=== PATIENT | female | born 1940 ===

== ENCOUNTER 2017-04-28 12:39 | Emergency (ER) | payer MEDICARE, OTHER ==
[2017-04-28 12:40] VITALS: PULSE 58; BMI 27.3
[2017-04-28 13:14] VITALS: BP 155/88; PULSE 78; RESP 16; TEMP 98.4; O2SAT 97
--- NOTE | 2017-04-28 14:40 | ED PDOC ---
HPI: CCC, URI, Sore Throat Time Seen by Provider: 04/28/17 14:28 Chief Complaint (Nursing): Headache Chief Complaint (Provider): Cough History Per: Patient, Family (Daughter) History/Exam Limitations: no limitations Have you had recent travel within the past 21 days to any of the following countries: [place], [place], [place] or [place]?: No Additional History Per: Family (Daughter) Additional Complaint(s): Pt reports cough productive of yellow sputum X 15 days, subjective fever, bilateral rib pain and LINO when coughing and bodyaches. Also c/o L sided neck pain X 3 days, worse with horizontal head movement. Denies paresthesias, weakness, CP, SOB. Past Medical History Vital Signs: Last Vital Signs Temp 98.4 F 04/28/17 13:12 Pulse 78 04/28/17 13:12 Resp 16 04/28/17 13:12 BP 155/88 H 04/28/17 13:12 Pulse Ox 97 04/28/17 17:25 - Medical History PMH: Anemia, Anxiety, Arthritis, Asthma, Atrial Fibrillation, CAD, Cardia Arrhythmia (a fib), Diverticulitis, Gastritis, Gall Bladder Disease, HTN, Hypercholesterolemia, Mitral Valve Prolapse, Osteoporosis, Peripheral Edema Denies: Hypothyroidism, Rheumatoid Arthritis - Surgical History Surgical History: Appendectomy, Cholecystectomy, Endoscopy, Hernia Repair Other surgeries: Valve replacement - Family History Family History: States: Unknown Family Hx - Social History Current smoker - smoking cessation education provided: No Alcohol: None - Immunization History Hx Influenza Vaccination: Yes - Home Medications Home Medications: Ambulatory Orders Medication Instructions Recorded Aspirin [Aspirin Chewable] 81 mg PO DAILY chew 05/19/16 Donepezil [Aricept] 5 mg PO HS tab 05/19/16 Furosemide [Lasix] 40 mg PO DAILY tab 05/19/16 Lisinopril [Zestril] 20 mg PO DAILY tab 05/19/16 Losartan [Cozaar] 100 mg PO DAILY tab 05/19/16 Montelukast [Singulair] 10 mg PO HS tab 05/19/16 Pantoprazole [Protonix EC Tab] 40 mg PO DAILY ect 05/19/16 Rosuvastatin Calcium [Crestor] 10 mg PO HS tab 05/19/16 amLODIPine [Norvasc] 10 mg PO DAILY tab 03/14/17 hydroCHLOROthiazide [Hydrodiuril] 25 mg PO DAILY tab 05/19/16 Warfarin [Coumadin] 5 mg PO DAILY 11/03/16 Moxifloxacin [Avelox] 400 mg PO DAILY #4 tab 04/28/17 - Allergies Allergies/Adverse Reactions: Allergies Allergy/AdvReac Type Severity Reaction Status Date / Time iodine Allergy SWELLING Verified 05/14/16 14:29 iv contrast Allergy SWELLING Uncoded 05/14/16 14:29 Curb-65 Severity Score - CURB-65 Severity Score Confusion: No Bun >19mg/dl (>7mmol/L): No Respiratory Rate greater than/equal to 30: No Systolic BP <90 or Diastolic BP less than/equal 60mmHg: No Age >64: Yes Curb-65 Score: 1 Percentage 30-day mortality: 2.7% Review of Systems Constitutional: Positive for: Fever (Subjective). Negative for: Chills, Sweats , Weakness, Malaise Eyes: Negative for: Vision Change Cardiovascular: Negative for: Chest Pain, Palpitations Respiratory: Positive for: Cough, Sputum. Negative for: Shortness of Breath, SOB with Exertion, Wheezing Gastrointestinal: Negative for: Nausea, Vomiting, Diarrhea Genitourinary Female: Negative for: Dysuria, Hematuria Musculoskeletal: Positive for: Neck Pain, Shoulder Pain. Negative for: Back Pain, Leg Pain Skin: Negative for: Rash, Lesions Neurological: Positive for: Headache. Negative for: Weakness, Numbness, Incoordination, Confusion, Seizures, Altered Mental Status, Dizziness Physical Exam - Reviewed Nursing Documentation Reviewed: Yes Vital Signs Reviewed: Yes - Physical Exam Appears: Positive for: Well, No Acute Distress (Speaking full sentences) Head Exam: Positive for: ATRAUMATIC, NORMAL INSPECTION Skin: Positive for: Normal Color, Warm, Dry Eye Exam: Positive for: Normal appearance, EOMI, PERRL Neck: Positive for: Supple, Trachea Midline, Pain On Movement Of Neck. Negative for: Normal (TTP L lateral neck along SCM), Painless ROM Cardiovascular/Chest: Positive for: Irregularly Irregular. Negative for: Bradycardia, Tachycardia Respiratory: Positive for: Normal Breath Sounds. Negative for: Rales, Rhonchi, Wheezing Gastrointestinal/Abdominal: Positive for: Normal Exam, Bowel Sounds, Soft Back: Positive for: Normal Inspection. Negative for: L CVA Tenderness, R CVA Tenderness Extremity: Positive for: Normal ROM. Negative for: Calf Tenderness, Swelling Neurologic/Psych: Positive for: Alert, interactive web developer II-XII, Oriented. Negative for: Motor/Sensory Deficits, Facial Droop - Laboratory Results Result Diagrams: 04/28/17 15:35 04/28/17 15:35 - ECG Interpretation Of ECG: A fib @ 85, RBBB (unchanged from 05/14/16). O2 Sat by Pulse Oximetry: 97 Pulse Ox Interpretation: Normal Medical Decision Making Medical Decision Makin yo female with productive cough, LINO and L neck pain. - labs - EKG - CXR - CT head Accession No. : [id number] Patient Name / ID : SHARMIN Barry / [id number] Exam Date : 04/28/2017 14:52:02 ( Approved ) Study Comment : Sex / Age : F / 76Y Creator : Javier Gomez MD Dictator : Javier Gomez MD Irrigator Valve Pipe : Interpersonal Communications Professor : Javier Gomez MD Approver2 : Report Date : 04/28/2017 15:29:03 My Comment : HISTORY: Cough COMPARISON: Frontal chest radiograph 03/06/2015. TECHNIQUE: Chest PA and lateral FINDINGS: LUNGS: Minimal linear atelectasis seen at the inferior right lung zone laterally versus interval fibrosis. No acute infiltrate bilaterally. Minimal chronic fibrosis inferior left lung zone laterally and at the medial base. PLEURA: No significant pleural effusion identified. No pneumothorax apparent. CARDIOVASCULAR: Gross cardiomegaly again evident. No pulmonary vascular congestion appreciable. Sternotomy wires again noted. OSSEOUS STRUCTURES: No significant abnormalities. VISUALIZED UPPER ABDOMEN: Normal. OTHER FINDINGS: None. IMPRESSION: Stable gross cardiomegaly. No pulmonary vascular derangement, pleural effusion or pneumothorax identified. Interval trace interval linear atelectasis or fibrosis inferior right lung zone with limited fibrosis remaining at the left lung. Accession No. : [id number] Patient Name / ID : SHARMIN DOMINGUEZ / [id number] Exam Date : 04/28/2017 16:14:07 ( Approved ) Study Comment : Sex / Age : F / 76Y Creator : Javier Gomez MD Dictator : Javier Gomez MD Irrigator Valve Pipe : Interpersonal Communications Professor : Javier Gomez MD Approver2 : Report Date : 04/28/2017 17:00:24 My Comment : PROCEDURE: CT HEAD WITHOUT CONTRAST. HISTORY: L sided LINO COMPARISON: Unenhanced head CT 03/07/2015. TECHNIQUE: Axial computed tomography images were obtained t hrough the head/brain without intravenous contrast. Radiation dose: Total exam DLP = 696.05 mGy-cm. This CT exam was performed using one or more of the following dose reduction techniques: Automated exposure control, adjustment of the mA and/or kV according to patient size, and/or use of iterative reconstruction technique. FINDINGS: HEMORRHAGE: No intracranial hemorrhage. BRAIN: Limited diffuse cerebral atrophy is reiterated as well as trace chronic microangiopathy. Chronic lacune is identified the left internal capsule. Posterior fossa contents appear stable in the interval. There is no mass effect or suspicious extra-axial fluid collection appreciated. Midline brain anatomy appears stable and unremarkable grossly. VENTRICLES: Unremarkable. No hydrocephalus. CALVARIUM: Unremarkable. PARANASAL SINUSES: Left maxillary sinusitis is appreciated. MASTOID AIR CELLS: Unremarkable as visualized. No inflammatory changes. OTHER FINDINGS: None. IMPRESSION: No definitive acute or subacute brain infarction is appreciable by standard CT criteria. No intracranial hemorrhage. Follow-up CT or MRI are available as clinically warranted. Stable limited age-related neuro degenerative change identified compared to CT 03/07/2015. 18:25 Dr. Souza paged. Pt unwilling to wait for call back. Will give patient copy of labs and discussed with INR 3.3. States she will follow-up with Dr. Souza. Disposition - Clinical Impression Clinical Impression: Bronchitis - Patient ED Disposition Is Patient to be Admitted: No - Disposition Referrals: Dallin Souza Jr., MD [Family Provider] - [facility] [Outside] Disposition: Routine/Home Disposition Time: 18:31 Condition: STABLE Prescriptions: Moxifloxacin [Avelox] 400 mg PO DAILY #4 tab Instructions: Acute Bronchitis Forms: [facility] (Swedish) Print Language: ALGERIAN
--- NOTE | 2017-04-28 15:30 | RAD ---
HISTORY: Cough COMPARISON: Frontal chest radiograph 03/06/2015. TECHNIQUE: Chest PA and lateral FINDINGS: LUNGS: Minimal linear atelectasis seen at the inferior right lung zone laterally versus interval fibrosis. No acute infiltrate bilaterally. Minimal chronic fibrosis inferior left lung zone laterally and at the medial base. PLEURA: No significant pleural effusion identified. No pneumothorax apparent. CARDIOVASCULAR: Gross cardiomegaly again evident. No pulmonary vascular congestion appreciable. Sternotomy wires again noted. OSSEOUS STRUCTURES: No significant abnormalities. VISUALIZED UPPER ABDOMEN: Normal. OTHER FINDINGS: None. IMPRESSION: Stable gross cardiomegaly. No pulmonary vascular derangement, pleural effusion or pneumothorax identified. Interval trace interval linear atelectasis or fibrosis inferior right lung zone with limited fibrosis remaining at the left lung.
[2017-04-28 15:49] LABS: BASO % 0.4 % (0.0-2.0); EOS # 0.2 K/uL (0.0-0.7); EOS % 1.9 % (0.0-4.0); HEMOGLOBIN 13.4 g/dL (12.0-16.0); LYMPH # 1.3 K/uL (1.0-4.3); LYMPH % 12.6 % (20.0-40.0); MEAN CELL VOLUME 84.4 fl (81.0-99.0); MEAN CORPUSCULAR HEMOGLOBIN 28.7 pg (27.0-31.0); MEAN PLATELET VOLUME 9.2 fl (7.2-11.7); MONO # 1.2 K/uL (0.0-0.8); MONO % 11.1 % (0.0-10.0); NEUT # 7.7 K/uL (1.8-7.0); NRBC % 0.2 % (0.0-0.0); RBC 4.68 Mil/uL (3.80-5.20); RED CELL DISTRIBUTION WIDTH 14.8 % (11.5-14.5); WHITE BLOOD COUNT 10.5 K/uL (4.8-10.8)
[2017-04-28 15:57] LABS: GFR AFRICAN-AMERICAN > 60; GFR NON-AFRICAN AMERICAN > 60
[2017-04-28 16:05] LABS: B-TYPE NATRIURETIC PEPTIDE 272 pg/ml (0-900)
[2017-04-28 16:11] LABS: ALB/GLOB RATIO 1.2 (1.0-2.1); ALBUMIN 4.6 g/dL (3.5-5.0); ALT/SGPT 35 U/L (9-52); AST/SGOT 40 U/L (14-36); BLOOD UREA NITROGEN 11 mg/dl (7-17)
[2017-04-28 16:15] LABS: SQUAMOUS EPITHIAL 3 /hpf (0-5); URINE BILIRUBIN NEGATIVE (NEGATIVE); URINE BLOOD NEGATIVE (NEGATIVE); URINE CLARITY SLIGHTY-CLOUDY (Clear); URINE COLOR YELLOW (YELLOW); URINE GLUCOSE (UA) NEG (Normal); URINE LEUKOCYTE ESTERASE NEG Leu/uL (Negative); URINE NITRATE NEGATIVE (NEGATIVE); URINE PROTEIN 30 mg/dL (NEGATIVE); URINE UROBILINOGEN 0.2-1.0 mg/dL (0.2-1.0)
[2017-04-28 16:45] LABS: INR 3.3 (0.9-1.2)
[2017-04-28 16:46] LABS: PROTHROMBIN TIME 37.1 Seconds (9.8-13.1)
[2017-04-28 16:47] LABS: PARTIAL THROMBOPLASTIN TIME 46.9 Seconds (25.6-37.1)
--- NOTE | 2017-04-28 17:02 | CT ---
PROCEDURE: CT HEAD WITHOUT CONTRAST. HISTORY: L sided LINO COMPARISON: Unenhanced head CT 03/07/2015. TECHNIQUE: Axial computed tomography images were obtained through the head/brain without intravenous contrast. Radiation dose: Total exam DLP = 696.05 mGy-cm. This CT exam was performed using one or more of the following dose reduction techniques: Automated exposure control, adjustment of the mA and/or kV according to patient size, and/or use of iterative reconstruction technique. FINDINGS: HEMORRHAGE: No intracranial hemorrhage. BRAIN: Limited diffuse cerebral atrophy is reiterated as well as trace chronic microangiopathy. Chronic lacune is identified the left internal capsule. Posterior fossa contents appear stable in the interval. There is no mass effect or suspicious extra-axial fluid collection appreciated. Midline brain anatomy appears stable and unremarkable grossly. VENTRICLES: Unremarkable. No hydrocephalus. CALVARIUM: Unremarkable. PARANASAL SINUSES: Left maxillary sinusitis is appreciated. MASTOID AIR CELLS: Unremarkable as visualized. No inflammatory changes. OTHER FINDINGS: None. IMPRESSION: No definitive acute or subacute brain infarction is appreciable by standard CT criteria. No intracranial hemorrhage. Follow-up CT or MRI are available as clinically warranted. Stable limited age-related neuro degenerative change identified compared to CT 03/07/2015.
--- NOTE | 2017-04-28 21:00 | CARD ---
APPROVED REPORT EKG Measurement Heart [id number] <Conclusion> Atrial fibrillation Right bundle branch block Abnormal ECG
== END 2017-04-28 18:54 | disposition home or self-care (01) ==
LOC: H.ER 12:39
DX: J40 Bronchitis, not specified as acute or chronic (principal); E78.00 Pure hypercholesterolemia, unspecified; I10 Essential (primary) hypertension; I25.10 Atherosclerotic heart disease of native coronary artery without angina pectoris; Z79.01 Long term (current) use of anticoagulants; Z95.2 Presence of prosthetic heart valve; I48.91 Unspecified atrial fibrillation; I34.1 Nonrheumatic mitral (valve) prolapse

== ENCOUNTER 2018-07-25 19:35 | Inpatient (IN) | payer MEDICARE, OTHER ==
[2018-07-25 19:35] VITALS: PULSE 58; BMI 27.3
[2018-07-25 20:36] LABS: ALB/GLOB RATIO 1.4 (1.0-2.1); ALBUMIN 4.4 g/dL (3.5-5.0); ALT/SGPT 78 U/L (9-52); AST/SGOT 73 U/L (14-36); BLOOD UREA NITROGEN 24 mg/dl (7-17); GFR NON-AFRICAN AMERICAN > 60
[2018-07-25 20:41] LABS: BASO % 0.4 % (0.0-2.0); EOS # 0.3 K/uL (0.0-0.7); EOS % 3.9 % (0.0-4.0); HEMOGLOBIN 12.9 g/dL (12.0-16.0); LYMPH # 1.4 K/uL (1.0-4.3); MEAN CELL VOLUME 86.2 fl (81.0-99.0); MEAN CORPUSCULAR HEMOGLOBIN 28.8 pg (27.0-31.0); MEAN CORPUSCULAR HGB CONC 33.4 g/dL (33.0-37.0); MEAN PLATELET VOLUME 10.1 fl (7.2-11.7); MONO # 0.9 K/uL (0.0-0.8); MONO % 12.7 % (0.0-10.0); NEUT # 4.3 K/uL (1.8-7.0); RBC 4.48 Mil/uL (3.80-5.20); RED CELL DISTRIBUTION WIDTH 14.9 % (11.5-14.5); WHITE BLOOD COUNT 6.9 K/uL (4.8-10.8)
--- NOTE | 2018-07-25 20:45 | ED PDOC ---
HPI: General Adult Time Seen by Provider: 07/25/18 19:54 Chief Complaint (Nursing): Chest Pain Chief Complaint (Provider): Shortness of breath History Per: Patient, Movie Writer ([email or web address] [id number]) History/Exam Limitations: no limitations Onset/Duration Of Symptoms: Days Additional Complaint(s): 77yo female, with history of hypertensio, high cholesterol, AFib, asthma, comes to ER reportingf shortness of breath. She reports her symptoms might be related to asthma; also states she has had a productive cough x 1 week with fever yesterday. She denies any associated vomiting or diarrhea. She reports mild lower extremity swelling bilaterally, which has been worsening over the past week. Past Medical History Reviewed: Historical Data, Nursing Documentation, Vital Signs Vital Signs: Last Vital Signs Temp 98.5 F 07/25/18 19:43 Pulse 70 07/25/18 19:43 Resp 20 07/25/18 19:43 BP 130/87 07/25/18 19:43 Pulse Ox 94 L 07/25/18 19:43 Primary Care Provider: Dallin Souza Jr. - Medical History PMH: Anemia, Anxiety, Arthritis, Asthma, Atrial Fibrillation, CAD, Cardia Arrhythmia (a fib), Diverticulitis, Gastritis, Gall Bladder Disease, HTN, Hypercholesterolemia, Mitral Valve Prolapse, Osteoporosis, Peripheral Edema Denies: Hypothyroidism, Rheumatoid Arthritis - Surgical History Surgical History: Appendectomy, Cholecystectomy, Endoscopy, Hernia Repair - Family History Family History: States: Unknown Family Hx - Social History Current smoker - smoking cessation education provided: No Alcohol: None Drugs: Denies - Immunization History Hx Influenza Vaccination: Yes - Home Medications Home Medications: Ambulatory Orders Medication Instructions Recorded Amlodipine Besylate 15 mg PO DAILY 02/11/18 Atorvastatin Calcium 40 mg PO DAILY 02/11/18 Metoprolol Tartrate 100 mg PO BID 02/11/18 Montelukast Sodium 10 mg PO HS 02/11/18 Warfarin Sodium 8 mg PO DAILY 02/11/18 Donepezil HCl [Aricept] 5 mg PO HS 07/25/18 Furosemide [Lasix] 40 mg PO BID 07/25/18 - Allergies Allergies/Adverse Reactions: Allergies Allergy/AdvReac Type Severity Reaction Status Date / Time iodine Allergy SWELLING Verified 02/11/18 15:09 iv contrast Allergy SWELLING Uncoded 05/14/16 14:29 Review of Systems ROS Statement: Except As Marked, All Systems Reviewed And Found Negative Constitutional: Positive for: Fever Respiratory: Positive for: Cough, Shortness of Breath, Sputum Gastrointestinal: Negative for: Vomiting, Diarrhea Physical Exam - Reviewed Nursing Documentation Reviewed: Yes Vital Signs Reviewed: Yes - Physical Exam Appears: Positive for: Non-toxic Head Exam: Positive for: ATRAUMATIC, NORMAL INSPECTION, NORMOCEPHALIC Skin: Positive for: Normal Color Eye Exam: Positive for: Normal appearance ENT: Positive for: Normal ENT Inspection Neck: Positive for: Supple Cardiovascular/Chest: Positive for: Regular Rate, Rhythm. Negative for: Tachycardia Respiratory: Positive for: Wheezing (expiratory wheeze; good air entry), Other (slight tachypnea). Negative for: Decreased Breath Sounds, Accessory Muscle Use Gastrointestinal/Abdominal: Positive for: Soft Back: Positive for: Normal Inspection Extremity: Positive for: Normal ROM, Pedal Edema (1+ pitting edema) Neurological/Psych: Positive for: Awake, Alert, Normal Tone - Laboratory Results Result Diagrams: 07/25/18 20:21 07/25/18 20:21 Lab Results: Total Bilirubin 0.6 mg/dl (0.2-1.3) 07/25/18 20:21 AST 73 U/L (14-36) H D 07/25/18 20:21 ALT 78 U/L (9-52) H D 07/25/18 20:21 Alkaline Phosphatase 60 U/L (38-126) 07/25/18 20:21 Total Protein 7.6 G/DL (6.3-8.2) 07/25/18 20:21 Albumin 4.4 g/dL (3.5-5.0) 07/25/18 20:21 Globulin 3.2 gm/dL (2.2-3.9) 07/25/18 20:21 Albumin/Globulin Ratio 1.4 (1.0-2.1) 07/25/18 20:21 - ECG O2 Sat by Pulse Oximetry: 94 (RA) Medical Decision Making Medical Decision Making: Impression: Asthma r/o pneumonia, CHF, spesis, influenza Plan: -- Labs -- EKG -- CXR -- DUoneb 3ml INH -- Solumedrol 125mg IVP 2224 the pts cxr appears negative, labs reviewed. probnp and trop are negative so unlikely chf. more likely is asthma exac, and steroids and nebs ordered to treat that. Case discussed with Dr. Cotto, medical service transplant nurse practitioner, who accepts patient for admission Plan for admission discussed with patient, and is agreeable. Time: 33 CXR RESULTS Clinical history: Cough. Comparison: 04/28/2017. Findings: Frontal and lateral views of the chest were obtained. The mediastinum is within normal limits. The heart is enlarged. The lungs are clear. No pleural effusion or pneumothorax is seen. The osseous structures and soft tissues are unremarkable. Impression: No acute disease. Stable cardiomegaly. Electronically signed on July 26, 2018 12:34:52 AM EDT by: Elvira Vega M.D., Certified by CHELLE HUA, Neuroradiology Scribe Attestation: Documented by Jessica Aguilar acting as a scribe for Leyla Hutchins MD. Provider Scribe Attestation: All medical record entries made by the Scribe were at my direction and personally dictated by me. I have reviewed the chart and agree that the record accurately reflects my personal performance of the history, physical exam, medical decision making, and the department course for this patient. I have also personally directed, reviewed, and agree with the discharge instructions and disposition. Disposition - Clinical Impression Clinical Impression: Chest pain - Patient ED Disposition Is Patient to be Admitted: Yes Counseled Patient/Family Regarding: Studies Performed, Diagnosis - Disposition Disposition Time: 22:35 Condition: STABLE
[2018-07-25] MEDS ORDERED: Albuterol-Ipratrop 3 mg / 0.5 (3 ml) UD INH STA ×2 (20:46→22:25)
[2018-07-25 20:48] LABS: B-TYPE NATRIURETIC PEPTIDE 359 pg/ml (0-900)
[2018-07-25] MEDS ORDERED: Albuterol-Ipratrop 3 mg / 0.5 (3 ml) UD ONE ×2 (20:54→22:33)
[2018-07-26] MEDS: MethylPREDNISolone 40 mg Vial IVP SCH ×3 (01:00→16:34)
[2018-07-26] MEDS: Albuterol-Ipratrop 3 mg / 0.5 (3 ml) UD INH SCH ×4 (07:21→19:13)
[2018-07-26] MEDS ORDERED: MethylPREDNISolone 40 mg Vial IVP SCH (09:00)
[2018-07-26] MEDS ORDERED: methylPREDNISolone 40 MG in Sodium Chloride 0.9% 50 ML IVP SCH (09:00)
[2018-07-26] MEDS ORDERED: methylPREDNISolone 40 MG in Sodium Chloride 0.9% 50 ML IVPB SCH (09:00)
[2018-07-26 09:54] LABS: BASO % 0.4 % (0.0-2.0); EOS % 0.1 % (0.0-4.0); HEMOGLOBIN 12.5 g/dL (12.0-16.0); LYMPH # 0.4 K/uL (1.0-4.3); LYMPH % 6.1 % (20.0-40.0); MEAN CELL VOLUME 86.4 fl (81.0-99.0); MEAN CORPUSCULAR HEMOGLOBIN 28.6 pg (27.0-31.0); MEAN CORPUSCULAR HGB CONC 33.1 g/dL (33.0-37.0); MEAN PLATELET VOLUME 10.2 fl (7.2-11.7); MONO # 0.1 K/uL (0.0-0.8); MONO % 1.4 % (0.0-10.0); NEUT # 6.3 K/uL (1.8-7.0); PLATELET COUNT 167 K/uL (130-400); RBC 4.37 Mil/uL (3.80-5.20); RED CELL DISTRIBUTION WIDTH 14.9 % (11.5-14.5); WHITE BLOOD COUNT 6.9 K/uL (4.8-10.8)
[2018-07-26 10:08] LABS: INR 1.4; PROTHROMBIN TIME 15.9 Seconds (9.8-13.1)
[2018-07-26 10:11] LABS: PARTIAL THROMBOPLASTIN TIME 31.7 Seconds (25.6-37.1)
[2018-07-26 10:12] LABS: LDL CHOLESTEROL 123 mg/dL (0-129)
[2018-07-26 10:13] LABS: ALB/GLOB RATIO 1.5 (1.0-2.1); ALBUMIN 4.3 g/dL (3.5-5.0); ALT/SGPT 76 U/L (9-52); AST/SGOT 60 U/L (14-36); BLOOD UREA NITROGEN 23 mg/dl (7-17); CALCIUM 8.8 mg/dL (8.4-10.2); GFR NON-AFRICAN AMERICAN > 60; HDL CHOLESTEROL 44 MG/DL (30-70)
[2018-07-26 10:19] LABS: BANDS 3 % (0-2); EOSINOPHIL 1 % (0-7); LYMPHOCYTE 6 % (20-50); MONOCYTE 1 % (0-10); NEUTROPHIL 89 % (42-75); PLATELET ESTIMATE NORMAL (NORMAL); TOTAL CELLS COUNTED 100
[2018-07-26 10:21] LABS: ANISOCYTOSIS SLIGHT; BURR CELLS SLIGHT; LARGE PLATELETS PRESENT; OVALOCYTES SLIGHT; POIKILOCYTOSIS SLIGHT
[2018-07-26] MEDS: Promethazine/Cod 6.25mg-10mg/5ml Syr UD PO PRN (10:43)
[2018-07-26 10:51] LABS: ABG ALLEN TEST YES; ARTERIAL BLOOD GAS HEMOGLOBIN 12.5 g/dL (11.7-17.4); ARTERIAL BLOOD GAS O2 CONTENT 16.4 ML/dL (15-23); ARTERIAL BLOOD GAS O2 SAT 96.5 % (95-98); ARTERIAL BLOOD GAS PCO2 33 mm/Hg (35-45); ARTERIAL BLOOD GAS PH 7.42 (7.35-7.45); ARTERIAL BLOOD GAS PO2 69 mm/Hg (80-100); ARTERIAL BLOOD GAS TCO2 22.4 mmol/L (22-28)
--- NOTE | 2018-07-26 11:30 | RAD ---
Date of service: 07/25/2018 HISTORY: cough COMPARISON: 04/28/2017 TECHNIQUE: Chest PA and lateral views. Two views. FINDINGS: LUNGS: Abnormal opacity lower right hemithorax bordered by what may be the minor fissure superiorly. In the lateral projection there is abnormal density in the region of the right middle lobe. Possible right middle lobe infiltrate. Consider correlation with computed tomography. No other abnormal opacity. PLEURA: No significant pleural effusion identified. No pneumothorax apparent. CARDIOVASCULAR: There is atheroscleroticCalcification of the thoracic aorta. Cardiomegaly. No congestive change. Sternotomy wires are noted. OSSEOUS STRUCTURES: No significant abnormalities. VISUALIZED UPPER ABDOMEN: Normal. OTHER FINDINGS: None. IMPRESSION: Possible right middle lobe infiltrate. Consider correlation with computed tomography.
--- NOTE | 2018-07-26 13:56 | CP.PCM.HP ---
History of Present Illness - History of Present Illness History of Present Illness: CC: CP/SOB 77 y/o F with multiple chronic medical condition, including Asthma, A Fib, CAD, MVP, HTN, Hypercholesterolemia, Peripheral Edema, Gastritis. [facility] to be evaluated for moderate CP with cough, described as intermittent,tightness type of moderate intensity, associated to moderate SOB, wheezing and productive cough, non bloody, Chest congestion. Onset of symptoms 2 days [employer] with no relief. Worsening symptoms: CP with cough. Aggravated factor: Moving/exercise. Pt denied; Fever, chills, n/v/d, abdominal pain, urinary symptoms, palpitations, syncope, sick contact, [facility] EKG: A Fib. CXR: Possible RML infiltrate. Present on Admission - Present on Admission Any Indicators Present on Admission: No Review of Systems - Constitutional Constitutional: Other (negative) - EENT Eyes: Other (negative) Ears: Other (negative) Nose/Mouth/Throat: Other (negative) - Cardiovascular Cardiovascular: Chest Pain - Respiratory Respiratory: Cough, Dyspnea, Wheezing, Pain with Coughing - Gastrointestinal Gastrointestinal: Other (negative) - Genitourinary Genitourinary: Other (negative) - Musculoskeletal Musculoskeletal: Arthralgias - Integumentary Integumentary: Other (negative) - Neurological Neurological: Other (negative) - Psychiatric Psychiatric: Other (negative) - Endocrine Endocrine: Other (negative) - Hematologic/Lymphatic Hematologic: Other (negative) Past Patient History - Infectious Disease Hx of Infectious Diseases: None - Past Medical History & Family History Past Medical History?: Yes Pertinent Family History: Unknown - Past Social History Alcohol: None Drugs: Denies Home Situation {Lives}: Alone - CARDIAC Hx Cardiac Disorders: Yes Hx Atrial Fibrillation: Yes Hx Cardia Arrhythmia: Yes Hx Hypercholesterolemia: Yes Hx Hypertension: Yes Hx Mitral Valve Prolapse: Yes Hx Peripheral Edema: Yes - PULMONARY Hx Respiratory Disorders: Yes Hx Asthma: Yes - NEUROLOGICAL Hx Neurological Disorder: No HX Cerebrovascular Accident: No - HEENT Hx HEENT Problems: No - RENAL Hx Chronic Kidney Disease: No - ENDOCRINE/METABOLIC Hx Endocrine Disorders: No Hx Hypothyroidism: No - HEMATOLOGICAL/ONCOLOGICAL Hx Blood Disorders: Yes Hx Anemia: Yes - INTEGUMENTARY Hx Dermatological Problems: No - MUSCULOSKELETAL/RHEUMATOLOGICAL Hx Musculoskeletal Disorders: Yes Hx Arthritis: Yes Hx Osteoporosis: Yes Hx Rheumatoid Arthritis: No - GASTROINTESTINAL Hx Gastrointestinal Disorders: Yes Hx Diverticulitis: Yes Hx Gall Bladder Disease: Yes Hx Gastritis: Yes - GENITOURINARY/GYNECOLOGICAL Hx Genitourinary Disorders: No - PSYCHIATRIC Hx Anxiety: Yes - SURGICAL HISTORY Hx Surgeries: Yes Hx Appendectomy: Yes Hx Cholecystectomy: Yes Hx Valve Replacement: Yes (MVR) - ANESTHESIA Hx Anesthesia: Yes Hx Anesthesia Reactions: No Hx Malignant Hyperthermia: No Meds Allergies/Adverse Reactions: Allergies Allergy/AdvReac Type Severity Reaction Status Date / Time iodine Allergy SWELLING Verified 02/11/18 15:09 iv contrast Allergy SWELLING Uncoded 05/14/16 14:29 Physical Exam - Constitutional Appears: No Acute Distress - Head Exam Head Exam: NORMAL INSPECTION - Eye Exam Eye Exam: PERRL - ENT Exam ENT Exam: Normal Exam - Neck Exam Neck exam: Positive for: Normal Inspection - Respiratory Exam Respiratory Exam: Decreased Breath Sounds, Rhonchi, Wheezes - Cardiovascular Exam Cardiovascular Exam: Irregular Rhythm - GI/Abdominal Exam GI & Abdominal Exam: Normal Bowel Sounds, Soft - Extremities Exam Extremities exam: Positive for: pedal edema - Back Exam Back exam: NORMAL INSPECTION - Neurological Exam Neurological exam: Alert, Oriented x3 - Psychiatric Exam Psychiatric exam: Normal Mood - Skin Skin Exam: Normal Color, Warm Results - Vital Signs Recent Vital Signs: Last Vital Signs Temp 98.1 F 07/26/18 12:11 Pulse 82 07/26/18 12:11 Resp 18 07/26/18 12:11 BP 105/68 07/26/18 12:11 Pulse Ox 98 07/26/18 12:11 reviewed Bro - Labs Result Diagrams: 07/30/18 04:12 07/30/18 04:12 Labs: Laboratory Results - last 24 hr 07/25/18 07/25/18 07/25/18 20:21 20:21 20:44 WBC 6.9 RBC 4.48 Hgb 12.9 Hct 38.6 MCV 86.2 MCH 28.8 MCHC 33.4 RDW 14.9 H Plt Count 177 MPV 10.1 Neut % (Auto) 62.0 Lymph % (Auto) 21.0 Jackson % (Auto) 12.7 H Eos % (Auto) 3.9 Baso % (Auto) 0.4 Neut # (Auto) 4.3 Lymph # (Auto) 1.4 Jackson # (Auto) 0.9 H Eos # (Auto) 0.3 Baso # (Auto) 0.0 Neutrophils % (Manual) Band Neutrophils % Lymphocytes % (Manual) Monocytes % (Manual) Eosinophils % (Manual) Platelet Estimate Large Platelets Poikilocytosis (manual Anisocytosis (manual) Ovalocytes [place]iss[place] Cells Acanthocytes (Spur) PT INR APTT pCO2 pO2 HCO3 ABG pH ABG Total CO2 ABG O2 Saturation ABG O2 Content ABG Base Excess ABG Hemoglobin ABG Carboxyhemoglobin POC ABG HHb (Measured) ABG Methemoglobin ABG O2 Capacity Justin Test A-a O2 Difference Hgb O2 Saturation FiO2 Sodium 140 Potassium 4.1 Chloride 104 Carbon Dioxide 24 Anion Gap 16 BUN 24 H Creatinine 0.7 Est GFR ( Amer) > 60 Est GFR (Non-Af Amer) > 60 Random Glucose 103 Calcium 9.0 Phosphorus Magnesium Total Bilirubin 0.6 AST 73 H D ALT 78 H D Alkaline Phosphatase 60 Troponin I < 0.0120 NT-Pro-B Natriuret Pep 359 Total Protein 7.6 Albumin 4.4 Globulin 3.2 Albumin/Globulin Ratio 1.4 Triglycerides Cholesterol LDL Cholesterol Direct HDL Cholesterol Thyroxine (T4) TSH 3rd Generation Influenza Typ A,B (EIA) Negative for flu a/b 07/26/18 07/26/18 07/26/18 09:15 09:15 09:15 WBC 6.9 RBC 4.37 Hgb 12.5 Hct 37.7 MCV 86.4 MCH 28.6 MCHC 33.1 RDW 14.9 H Plt Count 167 MPV 10.2 Neut % (Auto) 92.0 H Lymph % (Auto) 6.1 L Jackson % (Auto) 1.4 Eos % (Auto) 0.1 Baso % (Auto) 0.4 Neut # (Auto) 6.3 Lymph # (Auto) 0.4 L Jackson # (Auto) 0.1 Eos # (Auto) 0.0 Baso # (Auto) 0.0 Neutrophils % (Manual) 89 H Band Neutrophils % 3 H Lymphocytes % (Manual) 6 L Monocytes % (Manual) 1 Eosinophils % (Manual) 1 Platelet Estimate Normal Large Platelets Present Poikilocytosis (manual Slight Anisocytosis (manual) Slight Ovalocytes Slight [place] Cells Slight Acanthocytes (Spur) Slight PT 15.9 H INR 1.4 APTT 31.7 pCO2 pO2 HCO3 ABG pH ABG Total CO2 ABG O2 Saturation ABG O2 Content ABG Base Excess ABG Hemoglobin ABG Carboxyhemoglobin POC ABG HHb (Measured) ABG Methemoglobin ABG O2 Capacity Justin Test A-a O2 Difference Hgb O2 Saturation FiO2 Sodium 140 Potassium 4.1 Chloride 105 Carbon Dioxide 23 Anion Gap 16 BUN 23 H Creatinine 0.6 L Est GFR ( Amer) > 60 Est GFR (Non-Af Amer) > 60 Random Glucose 156 H Calcium 8.8 Phosphorus 3.7 Magnesium 2.1 Total Bilirubin 0.5 AST 60 H ALT 76 H Alkaline Phosphatase 47 Troponin I NT-Pro-B Natriuret Pep Total Protein 7.2 Albumin 4.3 Globulin 2.9 Albumin/Globulin Ratio 1.5 Triglycerides 50 Cholesterol 185 LDL Cholesterol Direct 123 HDL Cholesterol 44 Thyroxine (T4) 13.0 H TSH 3rd Generation 0.17 L Influenza Typ A,B (EIA) 07/26/18 10:02 WBC RBC Hgb Hct MCV MCH MCHC RDW Plt Count MPV Neut % (Auto) Lymph % (Auto) Jackson % (Auto) Eos % (Auto) Baso % (Auto) Neut # (Auto) Lymph # (Auto) Jackson # (Auto) Eos # (Auto) Baso # (Auto) Neutrophils % (Manual) Band Neutrophils % Lymphocytes % (Manual) Monocytes % (Manual) Eosinophils % (Manual) Platelet Estimate Large Platelets Poikilocytosis (manual Anisocytosis (manual) Ovalocytes [place] Cells Acanthocytes (Spur) PT INR APTT pCO2 33 L pO2 69 L HCO3 23.0 ABG pH 7.42 ABG Total CO2 22.4 ABG O2 Saturation 96.5 ABG O2 Content 16.4 ABG Base Excess -2.4 L ABG Hemoglobin 12.5 ABG Carboxyhemoglobin 1.9 H POC ABG HHb (Measured) 3.4 ABG Methemoglobin 1.5 ABG O2 Capacity 17.0 Justin Test Yes A-a O2 Difference 39.0 Hgb O2 Saturation 93.1 L FiO2 21.0 Sodium Potassium Chloride Carbon Dioxide Anion Gap BUN Creatinine Est GFR ( Amer) Est GFR (Non-Af Amer) Random Glucose Calcium Phosphorus Magnesium Total Bilirubin AST ALT Alkaline Phosphatase Troponin I NT-Pro-B Natriuret Pep Total Protein Albumin Globulin Albumin/Globulin Ratio Triglycerides Cholesterol LDL Cholesterol Direct HDL Cholesterol Thyroxine (T4) TSH 3rd Generation Influenza Typ A,B (EIA) reviewed J.P. - EKG Data EKG comments: reviewed J.P. - Imaging and Cardiology Chest x-ray Status: Report reviewed by me (Bro) Assessment & Plan (1) Chest pain Status: Acute Priority: High (2) Asthma exacerbation Status: Acute Priority: High (3) Hypercholesterolemia Status: Chronic Priority: Medium (4) HTN (hypertension) Status: Chronic Priority: Medium - Assessment and Plan (Free Text) Plan: Continue O2 NC 2 L/M, Duoneb, Solu-Medrol, Lasix, Phenergan with Co, Lipitor and rest of Tx. - Date & Time Date: 07/26/18 Time: 10:30
--- NOTE | 2018-07-26 17:04 | CARD ---
APPROVED REPORT Date of service: 07/25/2018 EKG Measurement Heart [id number] <Conclusion> Atrial fibrillation Right bundle branch block Abnormal ECG
[2018-07-27] MEDS: Albuterol-Ipratrop 3 mg / 0.5 (3 ml) UD INH SCH ×4 (07:50→19:30)
[2018-07-27] MEDS: MethylPREDNISolone 40 mg Vial IVP SCH ×2 (09:52→16:15)
--- NOTE | 2018-07-27 13:15 | CT ---
Date of service: 07/27/2018 PROCEDURE: CT Chest without contrast HISTORY: Lung infiltrate COMPARISON: 03/07/2015 CT thorax TECHNIQUE: Contiguous axial images were obtained through the chest without intravenous contrast enhancement. Sagittal and coronal reconstructions were performed. Radiation dose: Total exam DLP = 222.74 mGy-cm. This CT exam was performed using one or more of the following dose reduction techniques: Automated exposure control, adjustment of the mA and/or kV according to patient size, and/or use of iterative reconstruction technique. FINDINGS: LUNGS: Chronic changes in the right middle lobe and lingula. No suspicious pulmonary nodules, masses or infiltrates. MEDIASTINUM: Unremarkable thoracic aorta. No aneurysm. For massive cardiomegaly without pericardial effusion. No change compared to the prior study. Main pulmonary artery unremarkable. No vascular congestion. No lymphadenopathy. No aortic atherosclerotic calcification. PLEURA: No pleural fluid. No pneumothorax. BONES: No fracture. No destructive lesion. UPPER ABDOMEN: Grossly unremarkable. OTHER FINDINGS: None. IMPRESSION: Stable/massive cardiomegaly. No pericardial effusion. Chronic right middle lobe/lingular infiltrates. No acute or significant findings related to/ accounting for the clinical presentation. Additional benign and/or incidental findings described above. No significant interval change compared to the prior examination(s).
--- NOTE | 2018-07-27 14:32 | CP.PCM.PN ---
Subjective - Date & Time of Evaluation Date of Evaluation: 07/27/18 Time of Evaluation: 09:40 - Subjective Subjective: F/U CP. Asthma SOB and chest congestion improved,no C/P, still coughing with scant amount of yellowish phlegms. Objective - Vital Signs/Intake and Output Vital Signs (last 24 hours): Temp Pulse Resp BP Pulse Ox 98.1 F 94 H 18 123/83 95 07/27/18 12:00 07/27/18 12:00 07/27/18 12:00 07/27/18 12:00 07/27/18 12:00 - Medications Medications: Current Medications Acetaminophen (Tylenol 325mg Tab) 650 mg PO Q4 PRN PRN Reason: Pain, moderate (4-7) Albuterol/Ipratropium (Duoneb 3 Mg/0.5 Mg (3 Ml) Ud) 3 ml INH RQID [facility] Last Admin: 07/27/18 11:53 Dose: 3 ml Amlodipine Besylate (Norvasc) 15 mg PO DAILY [facility] Last Admin: 07/27/18 09:52 Dose: 15 mg Atorvastatin Calcium (Lipitor) 40 mg PO DAILY [facility] Last Admin: 07/27/18 09:52 Dose: 40 mg Donepezil HCl (Aricept) 5 mg PO HS [facility] Last Admin: 07/26/18 21:33 Dose: 5 mg Furosemide (Lasix) 40 mg PO BID [facility] Last Admin: 07/27/18 09:52 Dose: 40 mg Ceftriaxone Sodium 1 gm/ (Sodium Chloride) 100 mls @ 100 mls/hr IVPB DAILY [facility]; Protocol Azithromycin 500 mg/ Sodium (Chloride) 250 mls @ 250 mls/hr IVPB DAILY [facility]; Protocol Methylprednisolone (Solu-Medrol) 40 mg IVP Q8 [facility] Last Admin: 07/27/18 09:52 Dose: 40 mg Metoprolol Tartrate (Lopressor) 100 mg PO BID [facility] Last Admin: 07/27/18 09:52 Dose: 100 mg Montelukast Sodium (Singulair) 10 mg PO HS [facility] Last Admin: 07/26/18 21:33 Dose: 10 mg Promethazine HCl/Codeine (Phenergan/Codeine Oral Syrup) 5 ml PO Q6 PRN PRN Reason: Cough Last Admin: 07/26/18 10:43 Dose: 5 ml - Labs Labs: 07/26/18 09:15 07/26/18 09:15 PT 15.9 Seconds (9.8-13.1) H 07/26/18 09:15 INR 1.4 07/26/18 09:15 APTT 31.7 Seconds (25.6-37.1) 07/26/18 09:15 - Constitutional Appears: No Acute Distress - Head Exam Head Exam: NORMAL INSPECTION - Eye Exam Eye Exam: PERRL - ENT Exam ENT Exam: Normal Exam - Neck Exam Neck Exam: Normal Inspection - Respiratory Exam Respiratory Exam: Decreased Breath Sounds, Rhonchi (at bases), Wheezes - Cardiovascular Exam Cardiovascular Exam: Irregular Rhythm - GI/Abdominal Exam GI & Abdominal Exam: Soft, Normal Bowel Sounds - Extremities Exam Extremities Exam: Pedal Edema - Back Exam Back Exam: NORMAL INSPECTION - Neurological Exam Neurological Exam: Alert, Oriented x3 - Psychiatric Exam Psychiatric exam: Normal Mood - Skin Skin Exam: Normal Color, Warm Assessment and Plan (1) Chest pain Status: Acute (2) Asthma exacerbation Status: Acute (3) Hypercholesterolemia Status: Chronic (4) HTN (hypertension) Status: Chronic - Assessment and Plan (Free Text) Plan: CT Chest: Chronic changes in the R middle lobe and Lingula, no pulmonary nodules, masses or infiltrates. Continue Zithromax, Rocephin, Duoneb, Solu-M edrol and rest of Tx and PT.
[2018-07-27 16:00] LABS: HEMOGLOBIN 12.1 g/dL (12.0-16.0); MEAN CELL VOLUME 85.7 fl (81.0-99.0); MEAN CORPUSCULAR HEMOGLOBIN 28.1 pg (27.0-31.0); MEAN CORPUSCULAR HGB CONC 32.8 g/dL (33.0-37.0); RBC 4.31 Mil/uL (3.80-5.20); RED CELL DISTRIBUTION WIDTH 15.1 % (11.5-14.5)
[2018-07-27 16:09] LABS: BLOOD UREA NITROGEN 24 mg/dl (7-17); CALCIUM 8.5 mg/dL (8.4-10.2); GFR NON-AFRICAN AMERICAN > 60
[2018-07-27] MEDS: Azithromycin 500 MG in Sodium Chloride 0.9% 250 ML IVPB SCH (16:17)
[2018-07-28] MEDS: MethylPREDNISolone 40 mg Vial IVP SCH ×3 (00:38→16:14)
[2018-07-28] MEDS: Albuterol-Ipratrop 3 mg / 0.5 (3 ml) UD INH SCH ×4 (07:28→19:24)
[2018-07-28] MEDS: Azithromycin 500 MG in Sodium Chloride 0.9% 250 ML IVPB SCH (08:56)
--- NOTE | 2018-07-28 14:25 | CP.PCM.PN ---
Subjective - Date & Time of Evaluation Date of Evaluation: 07/28/18 - Subjective Subjective: F/U CP/ Bronchial Asthma. No CP or SOB noted, cough improves with scanty yellowish phlegms Objective - Vital Signs/Intake and Output Vital Signs (last 24 hours): Temp Pulse Resp BP Pulse Ox 98.2 F 88 18 109/65 98 07/28/18 12:36 07/28/18 12:36 07/28/18 12:36 07/28/18 12:36 07/28/18 12:36 - Medications Medications: Current Medications Acetaminophen (Tylenol 325mg Tab) 650 mg PO Q4 PRN PRN Reason: Pain, moderate (4-7) Acetylcysteine (Mucomyst 10% 4ml) 3 ml IH RTID [facility] Albuterol/Ipratropium (Duoneb 3 Mg/0.5 Mg (3 Ml) Ud) 3 ml INH RQID [facility] Last Admin: 07/28/18 11:07 Dose: 3 ml Amlodipine Besylate (Norvasc) 15 mg PO DAILY [facility] Last Admin: 07/28/18 08:55 Dose: 15 mg Atorvastatin Calcium (Lipitor) 40 mg PO DAILY [facility] Last Admin: 07/28/18 08:54 Dose: 40 mg Donepezil HCl (Aricept) 5 mg PO HS [facility] Last Admin: 07/27/18 21:18 Dose: 5 mg Furosemide (Lasix) 40 mg PO BID [facility] Last Admin: 07/28/18 08:54 Dose: 40 mg Ceftriaxone Sodium 1 gm/ (Sodium Chloride) 100 mls @ 100 mls/hr IVPB DAILY [facility]; Protocol Last Admin: 07/28/18 08:56 Dose: 100 mls/hr Azithromycin 500 mg/ Sodium (Chloride) 250 mls @ 250 mls/hr IVPB DAILY [facility]; Protocol Last Admin: 07/28/18 08:56 Dose: 250 mls/hr Methylprednisolone (Solu-Medrol) 40 mg IVP Q8 [facility] Last Admin: 07/28/18 08:56 Dose: 40 mg Metoprolol Tartrate (Lopressor) 100 mg PO BID [facility] Last Admin: 07/28/18 08:55 Dose: 100 mg Montelukast Sodium (Singulair) 10 mg PO HS [facility] Last Admin: 07/27/18 21:18 Dose: 10 mg Promethazine HCl/Codeine (Phenergan/Codeine Oral Syrup) 5 ml PO Q6 PRN PRN Reason: Cough Last Admin: 07/26/18 10:43 Dose: 5 ml - Labs Labs: 07/27/18 15:45 07/27/18 15:45 PT 15.9 Seconds (9.8-13.1) H 07/26/18 09:15 INR 1.4 07/26/18 09:15 APTT 31.7 Seconds (25.6-37.1) 07/26/18 09:15 - Constitutional Appears: No Acute Distress - Head Exam Head Exam: NORMAL INSPECTION - Eye Exam Eye Exam: PERRL - ENT Exam ENT Exam: Normal Exam - Neck Exam Neck Exam: Normal Inspection - Respiratory Exam Respiratory Exam: Decreased Breath Sounds, Rhonchi (scattered), Wheezes (scattered) - Cardiovascular Exam Cardiovascular Exam: Irregular Rhythm - GI/Abdominal Exam GI & Abdominal Exam: Soft, Normal Bowel Sounds - Extremities Exam Extremities Exam: Pedal Edema - Back Exam Back Exam: NORMAL INSPECTION - Neurological Exam Neurological Exam: Alert, Oriented x3 Additional comments: Follows commands. - Psychiatric Exam Psychiatric exam: Normal Mood - Skin Skin Exam: Warm Assessment and Plan (1) Chest pain Status: Acute (2) Asthma exacerbation Status: Acute (3) Hypercholesterolemia Status: Chronic (4) HTN (hypertension) Status: Chronic - Assessment and Plan (Free Text) Plan: Continue Zithromax, Rocephin, Solu-Medrol, Duoneb and rest of Tx.
[2018-07-28] MEDS: Acetylcysteine 10% 4 ML IH SCH (19:54)
[2018-07-28] MEDS: FLUTICASONE PROPION/SALMETEROL 113-14 IH SCH (21:15)
[2018-07-29] MEDS: MethylPREDNISolone 40 mg Vial IVP SCH ×3 (00:14→17:14)
[2018-07-29 05:56] LABS: HEMOGLOBIN 12.6 g/dL (12.0-16.0); MEAN CELL VOLUME 86.2 fl (81.0-99.0); MEAN CORPUSCULAR HEMOGLOBIN 28.9 pg (27.0-31.0); MEAN CORPUSCULAR HGB CONC 33.5 g/dL (33.0-37.0); RBC 4.36 Mil/uL (3.80-5.20); RED CELL DISTRIBUTION WIDTH 14.9 % (11.5-14.5); WHITE BLOOD COUNT 10.8 K/uL (4.8-10.8)
[2018-07-29 06:08] LABS: BLOOD UREA NITROGEN 26 mg/dl (7-17); CALCIUM 8.2 mg/dL (8.4-10.2); GFR NON-AFRICAN AMERICAN > 60
[2018-07-29] MEDS: Albuterol-Ipratrop 3 mg / 0.5 (3 ml) UD INH SCH ×4 (07:46→19:29)
[2018-07-29] MEDS: Acetylcysteine 10% 4 ML IH SCH ×2 (07:47→19:29)
[2018-07-29] MEDS: FLUTICASONE PROPION/SALMETEROL 113-14 IH SCH ×2 (09:26→21:31)
[2018-07-29] MEDS: Azithromycin 500 MG in Sodium Chloride 0.9% 250 ML IVPB SCH (09:29)
--- NOTE | 2018-07-29 13:03 | CP.PCM.PN ---
Subjective - Date & Time of Evaluation Date of Evaluation: 07/29/18 Time of Evaluation: 11:30 - Subjective Subjective: F/U CP. Asthma Exacerbation. Pt breathing better, less cough with scat amount of yellowish phlegms, chest congestion, no CP. Objective - Vital Signs/Intake and Output Vital Signs (last 24 hours): Temp Pulse Resp BP Pulse Ox 98.4 F 88 20 114/78 96 07/29/18 12:59 07/29/18 12:59 07/29/18 12:59 07/29/18 12:59 07/29/18 12:59 - Medications Medications: Current Medications Acetaminophen (Tylenol 325mg Tab) 650 mg PO Q4 PRN PRN Reason: Pain, moderate (4-7) Acetylcysteine (Mucomyst 10% 4ml) 3 ml IH RTID [facility] Last Admin: 07/29/18 07:47 Dose: 3 ml Albuterol/Ipratropium (Duoneb 3 Mg/0.5 Mg (3 Ml) Ud) 3 ml INH RQID [facility] Last Admin: 07/29/18 11:31 Dose: 3 ml Amlodipine Besylate (Norvasc) 15 mg PO DAILY [facility] Last Admin: 07/29/18 09:28 Dose: 15 mg Atorvastatin Calcium (Lipitor) 40 mg PO DAILY [facility] Last Admin: 07/29/18 09:27 Dose: 40 mg Donepezil HCl (Aricept) 5 mg PO HS [facility] Last Admin: 07/28/18 21:14 Dose: 5 mg Furosemide (Lasix) 40 mg PO BID [facility] Last Admin: 07/29/18 09:26 Dose: 40 mg Ceftriaxone Sodium 1 gm/ (Sodium Chloride) 100 mls @ 100 mls/hr IVPB DAILY [facility]; Protocol Last Admin: 07/29/18 09:29 Dose: 100 mls/hr Azithromycin 500 mg/ Sodium (Chloride) 250 mls @ 250 mls/hr IVPB DAILY [facility]; Protocol Last Admin: 07/29/18 09:29 Dose: 250 mls/hr Methylprednisolone (Solu-Medrol) 40 mg IVP Q8 [facility] Last Admin: 07/29/18 09:28 Dose: 40 mg Metoprolol Tartrate (Lopressor) 100 mg PO BID [facility] Last Admin: 07/29/18 09:27 Dose: 100 mg Montelukast Sodium (Singulair) 10 mg PO HS [facility] Last Admin: 07/28/18 21:14 Dose: 10 mg Promethazine HCl/Codeine (Phenergan/Codeine Oral Syrup) 5 ml PO Q6 PRN PRN Reason: Cough Last Admin: 07/26/18 10:43 Dose: 5 ml - Labs Labs: 07/29/18 05:05 07/29/18 05:05 PT 15.9 Seconds (9.8-13.1) H 07/26/18 09:15 INR 1.4 07/26/18 09:15 APTT 31.7 Seconds (25.6-37.1) 07/26/18 09:15 - Constitutional Appears: No Acute Distress - Head Exam Head Exam: NORMAL INSPECTION - Eye Exam Eye Exam: PERRL - ENT Exam ENT Exam: Normal Exam - Neck Exam Neck Exam: Normal Inspection - Respiratory Exam Respiratory Exam: Decreased Breath Sounds (at bases), Rhonchi (scattered), Wheezes (scattered) - Cardiovascular Exam Cardiovascular Exam: Irregular Rhythm - GI/Abdominal Exam GI & Abdominal Exam: Soft, Normal Bowel Sounds - Extremities Exam Extremities Exam: Pedal Edema - Back Exam Back Exam: NORMAL INSPECTION - Neurological Exam Neurological Exam: Alert, Oriented x3 Additional comments: Follows commands. - Psychiatric Exam Psychiatric exam: Normal Mood - Skin Skin Exam: Warm Assessment and Plan (1) Asthma exacerbation Status: Acute (2) Hypercholesterolemia Status: Chronic (3) HTN (hypertension) Status: Chronic - Assessment and Plan (Free Text) Plan: F/U Echo, EKG, CMP, CBC, Continue Zithromax, Duoneb, Lasix, Lovenox and rest of tx. Cardiac consult.
[2018-07-29] MEDS ORDERED: Enoxaparin 80 mg Syringe SC STA (18:14)
[2018-07-29] MEDS: Promethazine/Cod 6.25mg-10mg/5ml Syr UD PO PRN (18:46)
[2018-07-30] MEDS: MethylPREDNISolone 40 mg Vial IVP SCH ×3 (00:48→17:11)
[2018-07-30 05:39] LABS: INR 1.3; PROTHROMBIN TIME 14.5 Seconds (9.8-13.1)
[2018-07-30 05:42] LABS: PARTIAL THROMBOPLASTIN TIME 27.9 Seconds (25.6-37.1)
[2018-07-30 05:54] LABS: HEMOGLOBIN 12.4 g/dL (12.0-16.0); MEAN CELL VOLUME 85.1 fl (81.0-99.0); MEAN CORPUSCULAR HEMOGLOBIN 28.7 pg (27.0-31.0); MEAN CORPUSCULAR HGB CONC 33.7 g/dL (33.0-37.0); RBC 4.33 Mil/uL (3.80-5.20); RED CELL DISTRIBUTION WIDTH 14.7 % (11.5-14.5)
[2018-07-30 05:57] LABS: ALB/GLOB RATIO 1.5 (1.0-2.1); ALBUMIN 3.9 g/dL (3.5-5.0); ALT/SGPT 87 U/L (9-52); AST/SGOT 46 U/L (14-36); BLOOD UREA NITROGEN 23 mg/dl (7-17); CALCIUM 7.8 mg/dL (8.4-10.2); GFR NON-AFRICAN AMERICAN > 60
[2018-07-30] MEDS ORDERED: Enoxaparin 80 mg Syringe SC SCH (06:00)
[2018-07-30] MEDS: Acetylcysteine 10% 4 ML IH SCH ×4 (07:55→20:09)
[2018-07-30] MEDS: Albuterol-Ipratrop 3 mg / 0.5 (3 ml) UD INH SCH ×5 (07:56→20:09)
[2018-07-30] MEDS: FLUTICASONE PROPION/SALMETEROL 113-14 IH SCH ×2 (09:05→21:35)
[2018-07-30] MEDS: Azithromycin 500 MG in Sodium Chloride 0.9% 250 ML IVPB SCH (09:08)
[2018-07-30] MEDS ORDERED: Potassium Chloride 20 mEq ER Tab PO ONE (11:54)
--- NOTE | 2018-07-30 12:59 | CARD ---
APPROVED REPORT Date of service: 07/30/2018 EXAM: Two-dimensional and M-mode echocardiogram with Doppler and color Doppler. Other Information Quality : GoodRhythm : Atrial Fibrillation INDICATION Atrial Fibrillation 2D DIMENSIONS IVSd1.27 (0.7-1.1cm)LVDd3.35 (3.9-5.9cm) LVOT Diameter2.25 (1.8-2.4cm)PWd1.06 (0.7-1.1cm) IVSs1.58 (0.8-1.2cm)LVDs2.67 (2.5-4.0cm) FS (%) 20.5 %PWs1.58 (0.8-1.2cm) M-Mode DIMENSIONS Left Atrium (MM)7.76 (2.5-4.0cm)IVSd1.10 (0.7-1.1cm) Aortic Root3.27 (2.2-3.7cm)LVDd4.52 (4.0-5.6cm) Aortic Cusp Exc.1.40 (1.5-2.0cm)PWd1.43 (0.7-1.1cm) IVSs1.73 cmFS (%) 22 % LVDs3.53 (2.0-3.8cm)PWs1.54 cm Aortic Valve AoV Peak Etswelnw634.3cm/sAoV VTI20.7cmAO Peak GR.9mmHg LVOT Peak Vdzbgivs222.2cm/sLVOT VTI19.66cmAO Mean GR.6mmHg JOSÉ MIGUEL (VMAX)2.21dg3JAI (VTI)2.32cm2 Mitral Valve MV DECEL [id number] ZVK712ytL/A ratio0.0 MVA (PHT)1.84cm2 TDI E/Lateral E'0.0E/Medial E'0.0 Tricuspid Valve TR Peak [id number]/sRAP [id number] Peak Gr.42mmHg [id number] LEFT VENTRICLE The left ventricle is normal size. There is normal left ventricular wall thickness. The left ventricular systolic function is normal. The estimated ejection fraction is 55-60% No regional wall motion abnormalities noted.. The left ventricular diastolic function cannot be assessed due to underlying atrial fibrillation. No left ventricle thrombus noted on this study. There is no ventricular septal defect visualized. There is no left ventricular aneurysm. There is no mass noted in the left ventricle. RIGHT VENTRICLE The right ventricle is normal size. There is normal right ventricular wall thickness. The right ventricular systolic function is normal. ATRIA The left atrium is severely dilated. The right atrium is severely dilated. The interatrial septum is intact with no evidence for an atrial septal defect. AORTIC VALVE The aortic valve is normal in structure. Moderate aortic regurgitation is present. There is no aortic valvular stenosis. There is no aortic valvular vegetation. MITRAL VALVE The mitral valve is normal in structure. There is no evidence of mitral valve prolapse. There is no mitral valve stenosis. There is moderate mitral valve regurgitation noted. TRICUSPID VALVE The tricuspid valve is normal in structure. There is severe tricuspid valve regurgitation noted. RVSP is calculated at 47 mm Hg. There is no tricuspid valve prolapse or vegetation. There is no tricuspid valve stenosis. PULMONIC VALVE The pulmonary valve is normal in structure. There is no pulmonic valvular regurgitation. There is no pulmonic valvular stenosis. GREAT VESSELS The aortic root is normal in size. The ascending aorta is normal in size. The pulmonary artery is normal. The IVC is normal in size and collapses >50% with inspiration. PERICARDIAL EFFUSION There is no pericardial effusion. There is no pleural effusion. <Conclusion> The estimated ejection fraction is 55-60% The left ventricular diastolic function cannot be assessed due to underlying atrial fibrillation. The left atrium is severely dilated. The right atrium is severely dilated. Moderate aortic regurgitation is present. There is moderate mitral valve regurgitation noted. There is severe tricuspid valve regurgitation noted. RVSP is calculated at 47 mm Hg.
--- NOTE | 2018-07-30 14:26 | CP.PCM.PN ---
Subjective - Date & Time of Evaluation Date of Evaluation: 07/30/18 Time of Evaluation: 12:10 - Subjective Subjective: F/U Asthma Exacerbation. breathing better, less chest congestion Objective - Vital Signs/Intake and Output Vital Signs (last 24 hours): Temp Pulse Resp BP Pulse Ox 98.4 F 107 H 20 113/81 95 07/30/18 11:51 07/30/18 11:51 07/30/18 11:51 07/30/18 09:07 07/30/18 11:51 - Medications Medications: Current Medications Acetaminophen (Tylenol 325mg Tab) 650 mg PO Q4 PRN PRN Reason: Pain, moderate (4-7) Acetylcysteine (Mucomyst 10% 4ml) 3 ml IH RTID [facility] Last Admin: 07/30/18 13:07 Dose: 3 ml Albuterol/Ipratropium (Duoneb 3 Mg/0.5 Mg (3 Ml) Ud) 3 ml INH RQID [facility] Last Admin: 07/30/18 13:07 Dose: 3 ml Amlodipine Besylate (Norvasc) 15 mg PO DAILY [facility] Last Admin: 07/30/18 09:07 Dose: 15 mg Atorvastatin Calcium (Lipitor) 40 mg PO DAILY [facility] Last Admin: 07/30/18 09:06 Dose: 40 mg Donepezil HCl (Aricept) 5 mg PO HS [facility] Last Admin: 07/29/18 21:31 Dose: 5 mg Enoxaparin Sodium (Lovenox) 65 mg SC BID [facility]; Protocol Furosemide (Lasix) 40 mg PO BID [facility] Last Admin: 07/30/18 09:06 Dose: 40 mg Methylprednisolone (Solu-Medrol) 40 mg IVP Q8 [facility] Last Admin: 07/30/18 09:08 Dose: 40 mg Metoprolol Tartrate (Lopressor) 100 mg PO BID [facility] Last Admin: 07/30/18 09:06 Dose: 100 mg Montelukast Sodium (Singulair) 10 mg PO HS [facility] Last Admin: 07/29/18 21:31 Dose: 10 mg Promethazine HCl/Codeine (Phenergan/Codeine Oral Syrup) 5 ml PO Q6 PRN PRN Reason: Cough Last Admin: 07/29/18 18:46 Dose: 5 ml Warfarin Sodium (Coumadin) 8 mg PO QD5 [facility]; Protocol Stop: 07/30/18 17:01 - Labs Labs: 07/30/18 04:12 07/30/18 04:12 PT 14.5 Seconds (9.8-13.1) H 07/30/18 04:12 INR 1.3 07/30/18 04:12 APTT 27.9 Seconds (25.6-37.1) 07/30/18 04:12 - Constitutional Appears: No Acute Distress - Head Exam Head Exam: NORMOCEPHALIC - Eye Exam Eye Exam: PERRL - ENT Exam ENT Exam: Normal Exam - Neck Exam Neck Exam: Normal Inspection - Respiratory Exam Respiratory Exam: Wheezes (scattered) - GI/Abdominal Exam GI & Abdominal Exam: Soft, Normal Bowel Sounds - Extremities Exam Extremities Exam: Normal Inspection - Back Exam Back Exam: NORMAL INSPECTION - Neurological Exam Neurological Exam: Alert, Oriented x3. absent: CN II-XII Intact, Motor Sensory Deficit - Psychiatric Exam Psychiatric exam: Normal Affect, Normal Mood - Skin Skin Exam: Warm Assessment and Plan (1) Asthma exacerbation Status: Acute (2) Hypercholesterolemia Status: Chronic (3) HTN (hypertension) Status: Chronic (4) Afib Status: Chronic - Assessment and Plan (Free Text) Assessment: low Peak flow, 100/130,continue, continue Albuterol , Atrovent , Mucomyst , Coumadin , LovenoxLasix and rest of Tx, f/u ECHO, Cardiology consult
[2018-07-30] MEDS: Enoxaparin 80 mg Syringe SC SCH (17:10)
[2018-07-30] MEDS ORDERED: Alum-Mag Hydrox-Simethicone Susp (30 mL) PO ONE (20:31)
--- NOTE | 2018-07-31 02:16 | CON ---
DATE: 07/30/2018 CARDIOLOGY CONSULTATION REASON FOR CONSULTATION: Shortness of breath. HISTORY OF PRESENT ILLNESS: The patient is a 77-year-old female, originally from [facility], has a history of mitral valve replacement some 22 years ago in [facility] for rheumatic mitral heart disease. The patient also has a history of atrial fibrillation and is on Coumadin therapy. She presents because of shortness of breath and cough. The patient has also fever and sputum production. The patient denies any dizziness or syncope. SOCIAL HISTORY: Nonsmoker, nondrinker. MEDICATIONS: Aricept 5 mg once a day, IV Rocephin 1 g daily, IV Zithromax 500 mg daily, Coumadin 8 mg daily, Lasix 40 mg p.o. twice a day, Lipitor 40 mg once a day, Lopressor 100 mg twice a day, Norvasc mg daily, Phenergan with Codeine 5 mL every 6 hours p.r.n., Singulair 10 mg at bedtime, Solu-Medrol 40 mg intravenously every 8 hours. PAST SURGICAL HISTORY: Rheumatic heart disease with history of mitral valve replacement some 22 years ago at [facility]. The patient stated that she has bioprosthetic mitral valve, history of chronic atrial fibrillation. PHYSICAL EXAMINATION: GENERAL: The patient is an elderly female who does not appear to be in acute distress. VITAL SIGNS: Blood pressure 113/81, heart rate 107, temperature 98.4, respirations 20. HEENT: Normocephalic. CHEST: Bibasilar rhonchi. HEART: S1, S2, regular. ABDOMEN: Soft. EXTREMITIES: No edema. LABORATORY DATA: Hemoglobin and hematocrit of 12.4 and 36.8, white count and platelet count are within normal limits. SMA-7: Sodium 139, potassium 3.3, chloride 99, CO2 of 30, glucose 121, BUN 23, creatinine 0.7. Calcium is 7.8. Today's INR is 1.3. Mycoplasma pneumoniae IgM is negative. Urine pneumophila antigen is negative. Influenza type A and B serology is negative. EKG revealed atrial fibrillation at the rate of 97, right bundle-branch block. Chest CT scan without contrast, stable massive cardiomegaly, no pericardial effusion, chronic right middle lobe/lingular infiltrate. Chest x-ray revealed massive cardiomegaly with sternotomy wound. Echocardiographic study revealed ejection fraction in the range of 55-60%, left atrium severely dilated, right atrium severely dilated, severe tricuspid insufficiency with right ventricular systolic pressure measured at 47 mmHg. The left atrium measures 7.76 cm. ASSESSMENT: 1. Chronic atrial fibrillation. 2. Status post bioprosthetic mitral valve replacement. 3. Massive cardiomegaly. 4. Upper respiratory tract infection. RECOMMENDATIONS: Continue current IV Rocephin and IV Zithromax. The patient will receive Coumadin 8 mg oral today. Continue Lasix 40 mg twice a day, Lopressor at 100 mg twice a day, Norvasc mg once a day, Solu-Medrol mg once a day. The patient did receive K-Dur 20 mEq oral replacement today. Obtain a followup BMP in a.m. and start therapeutic subcutaneous Lovenox until therapeutic INR is achieved. Tico Hooker MD
[2018-07-31] MEDS: Enoxaparin 80 mg Syringe SC SCH ×2 (04:23→18:01)
[2018-07-31 05:18] LABS: INR 1.2; PROTHROMBIN TIME 13.8 Seconds (9.8-13.1)
[2018-07-31 05:21] LABS: PARTIAL THROMBOPLASTIN TIME 29.8 Seconds (25.6-37.1)
[2018-07-31 05:30] LABS: BLOOD UREA NITROGEN 22 mg/dl (7-17); CALCIUM 7.9 mg/dL (8.4-10.2); GFR NON-AFRICAN AMERICAN > 60
[2018-07-31] MEDS: Albuterol-Ipratrop 3 mg / 0.5 (3 ml) UD INH SCH ×4 (08:04→19:01)
[2018-07-31] MEDS: Acetylcysteine 10% 4 ML IH SCH ×3 (08:04→19:01)
[2018-07-31] MEDS: FLUTICASONE PROPION/SALMETEROL 113-14 IH SCH ×2 (09:25→21:52)
[2018-07-31] MEDS: Alum-Mag Hydrox-Simethicone Susp (30 mL) PO SCH ×3 (09:32→18:03)
--- NOTE | 2018-07-31 15:19 | CP.PCM.PN ---
Subjective - Date & Time of Evaluation Date of Evaluation: 07/31/18 Time of Evaluation: 14:20 - Subjective Subjective: F/U Astma Exacerbation. breathing better, minimal chest congestion,no PRESLEY Objective - Vital Signs/Intake and Output Vital Signs (last 24 hours): Temp Pulse Resp BP Pulse Ox 98.5 F 82 20 113/79 95 07/31/18 08:32 07/31/18 09:28 07/31/18 08:32 07/31/18 09:28 07/31/18 08:32 - Medications Medications: Current Medications Acetaminophen (Tylenol 325mg Tab) 650 mg PO Q4 PRN PRN Reason: Pain, moderate (4-7) Last Admin: 07/30/18 16:07 Dose: 650 mg Acetylcysteine (Mucomyst 10% 4ml) 3 ml IH RTID [facility] Last Admin: 07/31/18 13:01 Dose: Not Given Al Hydrox/Mg Hydrox/Simethicone (Maalox Plus 30 Ml) 30 ml PO TID [facility] Last Admin: 07/31/18 13:29 Dose: 30 ml Albuterol/Ipratropium (Duoneb 3 Mg/0.5 Mg (3 Ml) Ud) 3 ml INH RQID [facility] Last Admin: 07/31/18 12:04 Dose: 3 ml Amlodipine Besylate (Norvasc) 15 mg PO DAILY [facility] Last Admin: 07/31/18 09:28 Dose: 15 mg Atorvastatin Calcium (Lipitor) 40 mg PO DAILY [facility] Last Admin: 07/31/18 09:26 Dose: 40 mg Azithromycin (Zithromax) 500 mg PO DAILY [facility]; Protocol Last Admin: 07/31/18 09:29 Dose: 500 mg Donepezil HCl (Aricept) 5 mg PO HS [facility] Last Admin: 07/30/18 21:35 Dose: 5 mg Enoxaparin Sodium (Lovenox) 65 mg SC Q12H [facility]; Protocol Last Admin: 07/31/18 04:23 Dose: 65 mg Furosemide (Lasix) 40 mg PO BID [facility] Last Admin: 07/31/18 09:25 Dose: 40 mg Metoprolol Tartrate (Lopressor) 100 mg PO BID [facility] Last Admin: 07/31/18 09:26 Dose: 100 mg Montelukast Sodium (Singulair) 10 mg PO HS [facility] Last Admin: 07/30/18 21:35 Dose: 10 mg Potassium Chloride (K-Dur 20 Meq Er Tab) 20 meq PO BID [facility] Prednisone (Prednisone Tab) 20 mg PO TID [facility] Last Admin: 07/31/18 13:29 Dose: 20 mg Prednisone (Prednisone Tab) 20 mg PO ONCE ONE Stop: 07/31/18 20:32 Last Admin: 07/30/18 21:56 Dose: 20 mg Warfarin Sodium (Coumadin) 7.5 mg PO QD5 [facility]; Protocol Stop: 07/31/18 17:01 - Labs Labs: 07/30/18 04:12 07/31/18 04:40 PT 13.8 Seconds (9.8-13.1) H 07/31/18 04:40 INR 1.2 07/31/18 04:40 APTT 29.8 Seconds (25.6-37.1) 07/31/18 04:40 - Constitutional Appears: No Acute Distress - Head Exam Head Exam: NORMAL INSPECTION - Eye Exam Eye Exam: PERRL - ENT Exam ENT Exam: Normal Exam - Neck Exam Neck Exam: Normal Inspection - Respiratory Exam Respiratory Exam: Decreased Breath Sounds (at bases), Wheezes (few at bases) - Cardiovascular Exam Cardiovascular Exam: Irregular Rhythm - GI/Abdominal Exam GI & Abdominal Exam: Soft, Normal Bowel Sounds - Extremities Exam Extremities Exam: Normal Inspection - Back Exam Back Exam: NORMAL INSPECTION - Neurological Exam Neurological Exam: Alert, CN II-XII Intact, Oriented x3. absent: Motor Sensory Deficit - Psychiatric Exam Psychiatric exam: Normal Affect, Normal Mood - Skin Skin Exam: Warm Assessment and Plan (1) Asthma exacerbation Status: Acute (2) Hypercholesterolemia Status: Chronic (3) HTN (hypertension) Status: Chronic (4) Afib Status: Chronic - Assessment and Plan (Free Text) Plan: ECHO LVEF 55-60&, R L A severely dilated, moderate MR and TR, Pulmonary Hypertension RVSP 47mmHg, Cardiology consult appreciated, difficult IV access, continue Albuterol, Atrovent, Mucomyst, monitor on Prednisone po, Lovenox Coumadin, f/u Pt INR
[2018-07-31] MEDS: Potassium Chloride 20 mEq ER Tab PO SCH (17:59)
--- NOTE | 2018-07-31 22:24 | PN ---
DATE: 07/31/2018 SUBJECTIVE: The patient is still mildly short of breath requiring nasal O2, has minimal cough. PHYSICAL EXAMINATION: VITAL SIGNS: Blood pressure 116/79, heart rate 82, temperature 98.5, and respiration 20. HEENT: Normocephalic. CHEST: Diminished breath sounds over the bases. HEART: S1, S2. Regular. ABDOMEN: Soft. EXTREMITIES: No edema. LABORATORY DATA: Today's potassium is 3.3, glucose 116, and calcium 7.9. ASSESSMENT: 1. Chronic atrial fibrillation. 2. Status post bioprosthetic mitral valve replacement some 22 years ago in [facility]. 3. Massive cardiomegaly. 4. Pneumonia. RECOMMENDATIONS: Continue albuterol inhaler 3 mL four times a day. Continue Lasix 40 mg p.o. twice a day, Lipitor 40 mg once a day, Lopressor 100 mg twice a day, therapeutic subcutaneous Lovenox 60 mg every 12 hours, Norvasc at 15 mg once a day, oral Zithromax 500 mg daily, prednisone at 20 mg daily. The patient will receive Coumadin 7.5 mg today. Tico Hooker MD
[2018-08-01] MEDS: Enoxaparin 80 mg Syringe SC SCH ×2 (05:04→19:14)
[2018-08-01 05:50] LABS: INR 1.5; PROTHROMBIN TIME 16.7 Seconds (9.8-13.1)
[2018-08-01] MEDS: Albuterol-Ipratrop 3 mg / 0.5 (3 ml) UD INH SCH ×4 (08:14→19:13)
[2018-08-01] MEDS: Acetylcysteine 10% 4 ML IH SCH ×3 (08:15→19:13)
[2018-08-01] MEDS: FLUTICASONE PROPION/SALMETEROL 113-14 IH SCH ×2 (11:08→21:21)
[2018-08-01] MEDS: Alum-Mag Hydrox-Simethicone Susp (30 mL) PO SCH ×3 (11:10→19:10)
[2018-08-01] MEDS: Potassium Chloride 20 mEq ER Tab PO SCH ×2 (11:17→19:12)
--- NOTE | 2018-08-01 14:53 | CP.PCM.PN ---
Subjective - Date & Time of Evaluation Date of Evaluation: 08/01/18 Time of Evaluation: 12:50 - Subjective Subjective: F/U Asthma Exacerbation. Pt breathing better Objective - Vital Signs/Intake and Output Vital Signs (last 24 hours): Temp Pulse Resp BP Pulse Ox 98.3 F 97 H 18 126/80 99 08/01/18 12:34 08/01/18 12:34 08/01/18 12:34 08/01/18 12:34 08/01/18 12:34 - Medications Medications: Current Medications Acetaminophen (Tylenol 325mg Tab) 650 mg PO Q4 PRN PRN Reason: Pain, moderate (4-7) Last Admin: 07/30/18 16:07 Dose: 650 mg Acetylcysteine (Mucomyst 10% 4ml) 3 ml IH RTID [facility] Last Admin: 08/01/18 08:15 Dose: 3 ml Al Hydrox/Mg Hydrox/Simethicone (Maalox Plus 30 Ml) 30 ml PO TID [facility] Last Admin: 08/01/18 11:10 Dose: 30 ml Albuterol/Ipratropium (Duoneb 3 Mg/0.5 Mg (3 Ml) Ud) 3 ml INH RQID [facility] Last Admin: 08/01/18 11:46 Dose: 3 ml Amlodipine Besylate (Norvasc) 15 mg PO DAILY [facility] Last Admin: 08/01/18 11:11 Dose: 15 mg Atorvastatin Calcium (Lipitor) 40 mg PO DAILY [facility] Last Admin: 08/01/18 11:16 Dose: 40 mg Azithromycin (Zithromax) 500 mg PO DAILY [facility]; Protocol Last Admin: 08/01/18 11:11 Dose: 500 mg Donepezil HCl (Aricept) 5 mg PO [facility] Last Admin: 07/31/18 21:52 Dose: 5 mg Enoxaparin Sodium (Lovenox) 65 mg SC Q12H [facility]; Protocol Last Admin: 08/01/18 05:04 Dose: 65 mg Furosemide (Lasix) 40 mg PO BID [facility] Last Admin: 08/01/18 11:16 Dose: 40 mg Metoprolol Tartrate (Lopressor) 100 mg PO BID [facility] Last Admin: 08/01/18 11:16 Dose: 100 mg Montelukast Sodium (Singulair) 10 mg PO [facility] Last Admin: 07/31/18 22:08 Dose: 10 mg Potassium Chloride (K-Dur 20 Meq Er Tab) 20 meq PO BID [facility] Last Admin: 08/01/18 11:17 Dose: 20 meq Prednisone (Prednisone Tab) 20 mg PO TID [facility] Last Admin: 08/01/18 11:11 Dose: 20 mg Warfarin Sodium (Coumadin) 10 mg PO QD5 [facility]; Protocol Stop: 08/01/18 17:01 - Labs Labs: 07/30/18 04:12 07/31/18 04:40 PT 16.7 Seconds (9.8-13.1) H 08/01/18 04:30 INR 1.5 08/01/18 04:30 APTT 29.8 Seconds (25.6-37.1) 07/31/18 04:40 - Constitutional Appears: No Acute Distress - Head Exam Head Exam: NORMAL INSPECTION - Eye Exam Eye Exam: PERRL - ENT Exam ENT Exam: Normal Exam - Neck Exam Neck Exam: Normal Inspection - Respiratory Exam Respiratory Exam: Decreased Breath Sounds (at bases), Wheezes (few at bases) - Cardiovascular Exam Cardiovascular Exam: Irregular Rhythm - GI/Abdominal Exam GI & Abdominal Exam: Soft, Normal Bowel Sounds - Extremities Exam Extremities Exam: Normal Inspection - Back Exam Back Exam: NORMAL INSPECTION - Neurological Exam Neurological Exam: Alert, CN II-XII Intact, Oriented x3. absent: Motor Sensory Deficit - Psychiatric Exam Psychiatric exam: Normal Affect, Normal Mood - Skin Skin Exam: Warm Assessment and Plan (1) Asthma exacerbation Status: Acute (2) Hypercholesterolemia Status: Chronic (3) HTN (hypertension) Status: Chronic (4) Afib Status: Chronic - Assessment and Plan (Free Text) Plan: INR 1.3, Coumadin 10 mg today, Zithromax, Prednisone, Duoneb and rest of tx.
--- NOTE | 2018-08-01 16:17 | PN ---
DATE: 08/01/2018 SUBJECTIVE: The patient's shortness of breath is improving. She denies any chest pain. PHYSICAL EXAMINATION: VITAL SIGNS: Blood pressure 126/80, heart rate 97, temperature 98.3, and respirations 18. HEENT: Normocephalic. CHEST: Minimal wheeze and rhonchi. HEART: S1, S2. Regular. ABDOMEN: Soft. EXTREMITIES: No edema. LABORATORY DATA: Today's INR is 1.5. The patient's most recent cardiac catheterization was in November 2016 which revealed nonobstructive coronaries and normal left ventricular systolic function. ASSESSMENT: 1. Chronic atrial fibrillation. 2. Status post bioprosthetic mitral valve replacement some 22 years ago. 3. Massively dilated right atrium and left atrium. 4. Pneumonia. RECOMMENDATIONS: We will continue current therapy with subcutaneous Lovenox at 60 mg twice a day, continue Lasix 40 mg p.o. twice a day, K-Dur 20 mEq twice a day, and prednisone 20 mg once a day and we will administer Coumadin at 10 mg today. Tico Hooker MD
[2018-08-02] MEDS: Enoxaparin 80 mg Syringe SC SCH ×2 (05:43→17:22)
[2018-08-02 05:59] LABS: INR 2.1; PROTHROMBIN TIME 24.5 Seconds (9.8-13.1)
[2018-08-02] MEDS: Albuterol-Ipratrop 3 mg / 0.5 (3 ml) UD INH SCH (07:58)
[2018-08-02] MEDS: Acetylcysteine 10% 4 ML IH SCH (07:59)
[2018-08-02] MEDS: Alum-Mag Hydrox-Simethicone Susp (30 mL) PO SCH ×3 (09:50→17:22)
[2018-08-02] MEDS: FLUTICASONE PROPION/SALMETEROL 113-14 IH SCH ×2 (09:51→21:56)
[2018-08-02] MEDS: Potassium Chloride 20 mEq ER Tab PO SCH ×2 (09:51→17:22)
--- NOTE | 2018-08-02 14:22 | PN ---
DATE: 08/02/2018 SUBJECTIVE: The patient denies any chest pain. Shortness of breath has improved. PHYSICAL EXAMINATION: VITAL SIGNS: Blood pressure 129/95, heart rate 71, temperature 98.2, respirations 20. HEENT: Normocephalic. CHEST: Clear. HEART: S1 and S2. Regular. ABDOMEN: Soft. EXTREMITIES: No edema. LABORATORY DATA: Today's INR is 2.1. ASSESSMENT: 1. Chronic atrial fibrillation. 2. Status post bioprosthetic mitral valve replacement some 22 years ago. 3. Pneumonia. 4. Massively dilated right atrium and left atrium. RECOMMENDATIONS: Continue current therapy with subcutaneous Lovenox. Continue Lasix 40 mg p.o. twice a day, K-Dur 20 mEq twice a day, Lopressor 100 mg twice a day, Norvasc at mg once a day, oral Zithromax 500 mg daily. I will administer Coumadin 8 mg orally today. Tico Hooker MD
--- NOTE | 2018-08-02 15:24 | CP.PCM.PN ---
Subjective - Date & Time of Evaluation Date of Evaluation: 08/02/18 Time of Evaluation: 10:00 - Subjective Subjective: F/U Asthma Exacerbation. Pt breathing better, no SOB, no PRESLEY. Objective - Vital Signs/Intake and Output Vital Signs (last 24 hours): Temp Pulse Resp BP Pulse Ox 98.5 F 61 18 116/84 99 08/02/18 12:00 08/02/18 12:00 08/02/18 12:00 08/02/18 12:00 08/02/18 12:00 - Medications Medications: Current Medications Acetaminophen (Tylenol 325mg Tab) 650 mg PO Q4 PRN PRN Reason: Pain, moderate (4-7) Last Admin: 07/30/18 16:07 Dose: 650 mg Acetylcysteine (Mucomyst 10% 4ml) 3 ml IH RTID [facility] Last Admin: 08/02/18 07:59 Dose: Not Given Al Hydrox/Mg Hydrox/Simethicone (Maalox Plus 30 Ml) 30 ml PO TID [facility] Last Admin: 08/02/18 12:50 Dose: 30 ml Amlodipine Besylate (Norvasc) 15 mg PO DAILY [facility] Last Admin: 08/02/18 09:52 Dose: 15 mg Atorvastatin Calcium (Lipitor) 40 mg PO DAILY [facility] Last Admin: 08/02/18 09:54 Dose: 40 mg Azithromycin (Zithromax) 500 mg PO DAILY [facility]; Protocol Last Admin: 08/02/18 09:53 Dose: 500 mg Donepezil HCl (Aricept) 5 mg PO [facility] Last Admin: 08/01/18 21:23 Dose: 5 mg Enoxaparin Sodium (Lovenox) 65 mg SC Q12H [facility]; Protocol Last Admin: 08/02/18 05:43 Dose: 65 mg Furosemide (Lasix) 40 mg PO BID [facility] Last Admin: 08/02/18 09:52 Dose: 40 mg Metoprolol Tartrate (Lopressor) 100 mg PO BID [facility] Last Admin: 08/02/18 09:53 Dose: 100 mg Montelukast Sodium (Singulair) 10 mg PO HS [facility] Last Admin: 08/01/18 21:21 Dose: 10 mg Potassium Chloride (K-Dur 20 Meq Er Tab) 20 meq PO BID [facility] Last Admin: 08/02/18 09:51 Dose: 20 meq Prednisone (Prednisone Tab) 20 mg PO TID [facility] Last Admin: 08/02/18 12:50 Dose: 20 mg Warfarin Sodium (Coumadin) 8 mg PO QD5 [facility]; Protocol Stop: 08/02/18 17:01 - Labs Labs: 07/30/18 04:12 07/31/18 04:40 PT 24.5 Seconds (9.8-13.1) H D 08/02/18 05:15 INR 2.1 08/02/18 05:15 APTT 29.8 Seconds (25.6-37.1) 07/31/18 04:40 - Constitutional Appears: No Acute Distress - Head Exam Head Exam: NORMAL INSPECTION - Eye Exam Eye Exam: PERRL - ENT Exam ENT Exam: Normal Exam - Neck Exam Neck Exam: Normal Inspection - Respiratory Exam Respiratory Exam: Decreased Breath Sounds (at bases), Wheezes (few at bases) - Cardiovascular Exam Cardiovascular Exam: Irregular Rhythm - GI/Abdominal Exam GI & Abdominal Exam: Soft, Normal Bowel Sounds - Extremities Exam Extremities Exam: Normal Inspection - Back Exam Back Exam: NORMAL INSPECTION - Neurological Exam Neurological Exam: Alert, CN II-XII Intact, Oriented x3. absent: Motor Sensory Deficit - Psychiatric Exam Psychiatric exam: Normal Affect, Normal Mood - Skin Skin Exam: Warm Assessment and Plan (1) Asthma exacerbation Status: Acute (2) Hypercholesterolemia Status: Chronic (3) HTN (hypertension) Status: Chronic (4) Afib Status: Chronic - Assessment and Plan (Free Text) Plan: INR: 2.1, Coumadin, Prednisone, Duoneb, Mucomyst and rest of Tx.
[2018-08-03] MEDS: Enoxaparin 80 mg Syringe SC SCH (05:30)
[2018-08-03 06:11] LABS: PROTHROMBIN TIME 37.7 Seconds (9.8-13.1)
[2018-08-03 06:31] LABS: BLOOD UREA NITROGEN 28 mg/dl (7-17); CALCIUM 8.2 mg/dL (8.4-10.2); GFR NON-AFRICAN AMERICAN > 60
[2018-08-03 07:15] LABS: INR 3.3
[2018-08-03] MEDS: Acetylcysteine 10% 4 ML IH SCH ×2 (08:21→13:22)
[2018-08-03 08:34] VITALS: RESP 18
[2018-08-03] MEDS: Potassium Chloride 20 mEq ER Tab PO SCH (09:24)
[2018-08-03] MEDS: FLUTICASONE PROPION/SALMETEROL 113-14 IH SCH (09:24)
[2018-08-03] MEDS: Alum-Mag Hydrox-Simethicone Susp (30 mL) PO SCH ×2 (09:26→12:53)
--- NOTE | 2018-08-03 12:24 | CP.PCM.PCO ---
Assessment & Plan - Assessment and Plan (Free Text) Assessment: pt. seen and examined doing well this morning denies sob, cp, cough, fever or sx bleeding lungs CTA abd soft NT voiding freely ambulating ad andrea INE 3.3, pt. on lovenox/coumadin bridge, Lovenox discontinued pt. cleared for D/C to home today by pt. to cont coumadin 8 mg po daily and check PT/INR on Wednesday ( Rx provided) pt to f/u with pmd f//u cardio pmd outpatient
[2018-08-03 12:28] VITALS: BP 126/83; PULSE 86; TEMP 98.3; O2SAT 99
--- NOTE | 2018-08-03 13:59 | CP.PCM.DIS ---
Provider - Provider Date of Admission: 07/27/18 14:00 Attending physician: Stephen Cotto MD Consults: 07/29/18 18:27 Cardiology Consult Routine Comment: Consulting Provider: Tico Hooker Consulting Physician: Tico Hooker Reason for Consult: afib Diagnosis - Discharge Diagnosis (1) Asthma exacerbation Status: Acute Priority: High (2) Hypercholesterolemia Status: Chronic Priority: Medium (3) HTN (hypertension) Status: Chronic Priority: Medium (4) Afib Status: Chronic Hospital Course - Lab Results Lab Results: Most Recent Lab Values WBC 10.0 K/uL (4.8-10.8) 07/30/18 04:12 RBC 4.33 Mil/uL (3.80-5.20) 07/30/18 04:12 Hgb 12.4 g/dL (12.0-16.0) 07/30/18 04:12 Hct 36.8 % (34.0-47.0) 07/30/18 04:12 MCV 85.1 fl (81.0-99.0) 07/30/18 04:12 MCH 28.7 pg (27.0-31.0) 07/30/18 04:12 MCHC 33.7 g/dL (33.0-37.0) 07/30/18 04:12 RDW 14.7 % (11.5-14.5) H 07/30/18 04:12 Plt Count 204 K/uL (130-400) 07/30/18 04:12 MPV 10.2 fl (7.2-11.7) 07/26/18 09:15 Neut % (Auto) 92.0 % (50.0-75.0) H 07/26/18 09:15 Lymph % (Auto) 6.1 % (20.0-40.0) L 07/26/18 09:15 [place] % (Auto) 1.4 % (0.0-10.0) 07/26/18 09:15 Eos % (Auto) 0.1 % (0.0-4.0) 07/26/18 09:15 Baso % (Auto) 0.4 % (0.0-2.0) 07/26/18 09:15 Neut # (Auto) 6.3 K/uL (1.8-7.0) 07/26/18 09:15 Lymph # (Auto) 0.4 K/uL (1.0-4.3) L 07/26/18 09:15 [place] # (Auto) 0.1 K/uL (0.0-0.8) 07/26/18 09:15 Eos # (Auto) 0.0 K/uL (0.0-0.7) 07/26/18 09:15 Baso # (Auto) 0.0 K/uL (0.0-0.2) 07/26/18 09:15 Neutrophils % (Manual) 89 % (42-75) H 07/26/18 09:15 Band Neutrophils % 3 % (0-2) H 07/26/18 09:15 Lymphocytes % (Manual) 6 % (20-50) L 07/26/18 09:15 Monocytes % (Manual) 1 % (0-10) 07/26/18 09:15 Eosinophils % (Manual) 1 % (0-7) 07/26/18 09:15 Platelet Estimate Normal (NORMAL) 07/26/18 09:15 Large Platelets Present 07/26/18 09:15 Poikilocytosis (manual Slight 07/26/18 09:15 Anisocytosis (manual) Slight 07/26/18 09:15 Ovalocytes Slight 07/26/18 09:15 [place] Cells Slight 07/26/18 09:15 Acanthocytes (Spur) Slight 07/26/18 09:15 PT 37.7 Seconds (9.8-13.1) H D 08/03/18 05:35 INR 3.3 08/03/18 05:35 APTT 29.8 Seconds (25.6-37.1) 07/31/18 04:40 pCO2 33 mm/Hg (35-45) L 07/26/18 10:02 pO2 69 mm/Hg (80-100) L 07/26/18 10:02 HCO3 23.0 mmol/L (21-28) 07/26/18 10:02 ABG pH 7.42 (7.35-7.45) 07/26/18 10:02 ABG Total CO2 22.4 mmol/L (22-28) 07/26/18 10:02 ABG O2 Saturation 96.5 % (95-98) 07/26/18 10:02 ABG O2 Content 16.4 ML/dL (15-23) 07/26/18 10:02 ABG Base Excess -2.4 mmol/L (-2.0-3.0) L 07/26/18 10:02 ABG Hemoglobin 12.5 g/dL (11.7-17.4) 07/26/18 10:02 ABG Carboxyhemoglobin 1.9 % (0.5-1.5) H 07/26/18 10:02 POC ABG HHb (Measured) 3.4 % (0.0-5.0) 07/26/18 10:02 ABG Methemoglobin 1.5 % (0.0-3.0) 07/26/18 10:02 ABG O2 Capacity 17.0 mL/dL (16-24) 07/26/18 10:02 Justin Test Yes 07/26/18 10:02 A-a O2 Difference 39.0 mm/Hg 07/26/18 10:02 Hgb O2 Saturation 93.1 % (95.0-98.0) L 07/26/18 10:02 FiO2 21.0 % 07/26/18 10:02 Sodium 135 mmol/l (132-148) 08/03/18 05:35 Potassium 4.4 MMOL/L (3.6-5.0) 08/03/18 05:35 Chloride 99 mmol/L (98-107) 08/03/18 05:35 Carbon Dioxide 29 mmol/L (22-30) 08/03/18 05:35 Anion Gap 11 (10-20) 08/03/18 05:35 BUN 28 mg/dl (7-17) H 08/03/18 05:35 Creatinine 0.7 mg/dl (0.7-1.2) 08/03/18 05:35 Est GFR ( Amer) > 60 08/03/18 05:35 Est GFR (Non-Af Amer) > 60 08/03/18 05:35 Random Glucose 115 mg/dL (65-105) H 08/03/18 05:35 Calcium 8.2 mg/dL (8.4-10.2) L 08/03/18 05:35 Phosphorus 3.7 mg/dl (2.5-4.5) 07/26/18 09:15 Magnesium 2.1 MG/DL (1.6-2.3) 07/26/18 09:15 Total Bilirubin 0.4 mg/dl (0.2-1.3) 07/30/18 04:12 AST 46 U/L (14-36) H D 07/30/18 04:12 ALT 87 U/L (9-52) H 07/30/18 04:12 Alkaline Phosphatase 40 U/L (38-126) 07/30/18 04:12 Troponin I < 0.0120 ng/mL (0.00-0.120) 07/25/18 20:21 NT-Pro-B Natriuret Pep 359 pg/ml (0-900) 07/25/18 20: Total Protein 6.4 G/DL (6.3-8.2) 07/30/18 04:12 Albumin 3.9 g/dL (3.5-5.0) 07/30/18 04:12 Globulin 2.5 gm/dL (2.2-3.9) 07/30/18 04:12 Albumin/Globulin Ratio 1.5 (1.0-2.1) 07/30/18 04:12 Triglycerides 50 mg/DL (0-149) 07/26/18 09:15 Cholesterol 185 mg/dL (0-199) 07/26/18 09:15 LDL Cholesterol Direct 123 mg/dL (0-129) 07/26/18 09:15 HDL Cholesterol 44 MG/DL (30-70) 07/26/18 09:15 Thyroxine (T4) 13.0 ug/dl (5.5-11.0) H 07/26/18 09:15 TSH 3rd Generation 0.17 mIU/ML (0.46-4.68) L 07/26/18 09:15 Influenza Typ A,B (EIA) Negative for flu a/b (NEGATIVE) 07/25/18 20:44 Ur L.pneumophila Ag Negative (NEGATIVE) 07/29/18 22:28 Mycoplasma pneumon IgM Negative (NEGATIVE) 07/27/18 16:50 Discharge Exam - Head Exam Head Exam: NORMAL INSPECTION Discharge Plan - Discharge Medications Prescriptions: Fluticasone Propion/Salmeterol [Airduo Resp. Fluticasone-Salmeterol 113-14] 1 puff IH Q12 #1 inhaler Potassium Chloride [K-Dur 20 mEq ER Tab] 20 meq PO DAILY #7 tab predniSONE [predniSONE Tab] 20 mg PO DAILY #12 tab Pantoprazole Sodium [Protonix] 40 mg PO DAILY #7 ect Albuterol HFA [Ventolin HFA 90 mcg/actuation (8 g)] 1 puff IH Q4 PRN #1 inhaler PRN Reason: sob Warfarin Sodium 8 mg PO DAILY #30 - Follow Up Plan Condition: STABLE Disposition: HOME/ ROUTINE Instructions: Asthma, Adult (DC), Chest Pain (DC) Additional Instructions: [facility] visiting nurse [phone] follow up appt with primary MD in 1 week Referrals: Dallin Souza Jr., MD [Family Provider] - Stephen Cotto MD [Staff Provider] -
--- NOTE | 2018-08-03 16:25 | PN ---
DATE: 08/03/2018 SUBJECTIVE: The patient denies chest pain. Shortness of breath has improved. PHYSICAL EXAMINATION: VITAL SIGNS: Blood pressure 135/91, heart rate 61, temperature 98.4, respirations 18. HEENT: Normocephalic. CHEST: Clear. HEART: S1 and S2. Regular. EXTREMITIES: No edema. LABORATORY DATA: Today's SMA-7 is within normal limits expect for a glucose of 115 and BUN of 28. Calcium is normal at 8.2. Today's INR is 3.3. ASSESSMENT: 1. Chronic atrial fibrillation. 2. Exacerbation of bronchial asthma. 3. Status post bioprosthetic mitral valve replacement. 4. Pneumonia. RECOMMENDATIONS: Discontinue therapeutic with subcutaneous Lovenox. Continue Lasix 40 mg p.o. twice a day, K-Dur 20 mEq twice a day, prednisone mg t.i.d., Norvasc at 15 mg once a day. May start Coumadin tomorrow at 8 mg daily with outpatient followup with INR with her primary physician. Case was discussed with , the nurse practitioner. Tico Hooker MD
--- NOTE | 2018-08-08 13:51 | PQF ---
PROVIDER RESPONSE TEXT: Moderate persistent REVIEWER QUERY TEXT: Asthma Specificity and Type Asthma is documented in the Medical Record. Please specify the type of asthma if known: Such as: -- Mild intermittent -- Mild persistent -- Moderate persistent -- Severe persistent -- Other, please specify O2 sat.: 94->97->97->94->95 H and P includes: (2) Asthma exacerbation Status: Acute Priority: High -Continue O2 NC 2 L/M, Duoneb, Solu-Medrol,Phenergan with Co etc. The patient's Clinical Indicators include: -- Query created by: Monica Whitley on 07/28/2018 11:42 AM Electronically signed by: Stephen Cotto MD 08/08/2018 1:48 PM
--- NOTE | 2018-08-08 13:51 | PQF ---
PROVIDER RESPONSE TEXT: Chronic Afib REVIEWER QUERY TEXT: Atrial Fibrillation Type Atrial fibrillation is documented in the Medical Record. Please specify the type if known Such as: -- Chronic -- Paroxysmal -- Permanent -- Persistent -- Other, please specify 07/26 EKG includes: <Conclusion> Atrial fibrillation Right bundle branch block Abnormal ECG H and P includes; H and P: multiple chronic medical condition, including Asthma, A Fib, CAD, MVP, HTN , Hypercholesterolemia, Peripheral Edema, Gastri The patient's Clinical Indicators include: -- Query created by: Monica Whitley on 07/29/2018 3:31 PM Electronically signed by: Stephen Cotto MD 08/08/2018 1:48 PM
--- NOTE | 2018-08-08 13:51 | PQF ---
PROVIDER RESPONSE TEXT: Chest pain probably related to asthma exacerbation and pneumonia REVIEWER QUERY TEXT: Clarification of Clinical Diagnostic Findings Please clarify the etiology of the chest Pain if known: after the work up is completed OR: Unable to determine trop <0.0120 07/26 EKG: Atrial fibrillation ,Right bundle branch block , Abnormal ECG 07/26 CXR: Possible right middle lobe infiltrate.Consider correlation with CT. ER note includes: fever yesterday H and P: multiple chronic medical condition, including Asthma, A Fib, CAD, MVP, HTN, Hypercholesterol emia, Peripheral Edema, Gastritis. (2) Asthma exacerbation Status: Acute Priority: High (3) Hypercholesterolemia Status: Chronic Priority: Medium (4) HTN (hypertension) Status: Chronic Priority: Medium 07/27 Attending progress note includes: CT Chest: Chronic R middle lobe/lingual infiltrate.Continue Zi thromax, Rocephin, Duoneb, Solu- Medrol and rest of Tx and PT. The patient's Clinical Indicators include: --- Query created by: Monica Whitley on 07/28/2018 11:50 AM Electronically signed by: Stephen Cotto MD 08/08/2018 1:48 PM
--- NOTE | 2018-08-08 13:51 | PQF ---
PROVIDER RESPONSE TEXT: Pneumonia REVIEWER QUERY TEXT: Medication Correlation for Diagnosis Your help is needed in capturing diagnoses for the corresponding medications ordered. Please clarify in the documentation diagnoses for the following medication(s). 07/27/17: Medications:Zithromax 500 mg IV OD 07/26 CXR: Possible right middle lobe infiltrate.Consider correlation with computed tomography 07/27: Chest CT:Stable/massive cardiomegaly.No pericardial effusion.Chronic right middle lobe/lingular infiltrates. No acute or significant findings related to/ accounting for the clinical presentation.Additional jude ign and/or incidental findings described above.No significant interval change compared to the prior e xamination(s). The patient's Clinical Indicators include: -- Query created by: Monica Whitley on 07/29/2018 3:30 PM Electronically signed by: Stephen Cotto MD 08/08/2018 1:48 PM
== END 2018-08-03 14:50 | disposition home or self-care (01) | DRG 202 ==
LOC: H.ER 19:35 → H.ERHOLD 22:23 → H.TEL 07-26 00:27 → OBSVTOIN 07-27 14:00
PROVIDERS: ADMIT Internal Medicine Pulmonary Disease; ATTEND Internal Medicine Pulmonary Disease
DX: J45.41 Moderate persistent asthma with (acute) exacerbation (principal); J18.9 Pneumonia, unspecified organism; I48.2 Chronic atrial fibrillation; Z95.2 Presence of prosthetic heart valve; I25.10 Atherosclerotic heart disease of native coronary artery without angina pectoris; I10 Essential (primary) hypertension; E78.00 Pure hypercholesterolemia, unspecified; K29.70 Gastritis, unspecified, without bleeding; I08.1 Rheumatic disorders of both mitral and tricuspid valves; Z79.01 Long term (current) use of anticoagulants; Z91.041 Radiographic dye allergy status; M81.0 Age-related osteoporosis without current pathological fracture